=== PATIENT | female | born 1960 | race Caucasian/White ===

== ENCOUNTER 2020-09-06 22:50 | Emergency (ER) | payer MEDICAID ==
--- NOTE | 2020-09-06 23:25 | ERPHSYRPT ---
- History of Present Illness Source: patient Exam Limitations: no limitations Patient Subjective Stated Complaint: pt states that she was sitting on the side of the bed and got up and fell. pt states that she felt her ankle give Triage Nursing Assessment: pt came into the er via wheelchair; pt is axo x3; c/o fall with injury to LLE; pt states that she uses walker to ambulate with at home; pt states 8/10 pain to LLE; weak pedal pulse to LLE; swelling present to left ankle; pt states left knee, left calf, and left ankle pain; pt denies left hip pain; to deformities present; vitals wnl Physician History: 60 yo wf w fall off bed 12 hours ago at home. Pt complains of L Knee/L ankle pain. Pain moderate and worse w weight bearing. Occurred: this morning Reason for Fall: lost balance Injuries/Pain Location: lower extremity Loss of Consciousness: no loss of consciousness Quality: aching Severity of Pain-Max: moderate Severity of Pain-Current: moderate Modifying Factors: Improves With: movement Associated Symptoms (Fall): denies symptoms Allergies/Adverse Reactions: No Known Drug Allergies Allergy (Verified 09/06/20 23:12) Home Medications: Atenolol 12.5 mg PO BID 03/10/13 [History] Omeprazole [Prilosec] 20 mg PO DAILY 03/10/13 [History] Hx Tetanus, Diphtheria Vaccination/Date Given: Yes (2012) Hx Influenza Vaccination/Date Given: Yes Hx Pneumococcal Vaccination/Date Given: Yes Travel Risk - International Travel Have you traveled outside of the country in past 3 weeks: No - Coronavirus Screening Are you exhibiting any of the following symptoms?: No Close contact with a COVID-19 positive Pt in past 14-21 Days: No - Review of Systems Constitutional: No Symptoms Eyes: No Symptoms Ears, Nose, & Throat: No Symptoms Respiratory: No Symptoms Cardiac: No Symptoms Abdominal/Gastrointestinal: No Symptoms Genitourinary Symptoms: No Symptoms Skin: No Symptoms Neurological: No Symptoms Psychological: No Symptoms Hematologic/Lymphatic: No Symptoms Immunological/Allergic: No Symptoms - Past Medical History Pertinent Past Medical History: Yes Neurological History: Peripheral Neuropathy, Stroke Cardiac History: Hypertension Respiratory History: COPD, Lung Cancer, Pneumonia Endocrine Medical History: No Pertinent History Musculoskeletal History: Osteoarthritis Psycho-Social History: Anxiety, Bipolar, Depression, Other Other Medical History: Stroke 2016, neuropathy in B feet that has gotten worse due to chemotherapy. Pt is on 3L O2 24 hours/day. - Past Surgical History Past Surgical History: Yes Musculoskeletal: Orthopedic Surgery Female Surgical History: Section Other Surgical History: upper left lobe of lung removed - Social History Smoking Status: Current every day smoker How long have you smoked: 40 Exposure to second hand smoke: Yes Drug Use: none Patient Lives Alone: No - Female History Hx Now: No - Nursing Vital Signs Nursing Vital Signs: Initial Vital Signs Temperature 97.9 F 09/06/20 22:57 Pulse Rate 87 09/06/20 22:57 Respiratory Rate 24 09/06/20 22:57 Blood Pressure 137/72 09/06/20 22:57 O2 Sat by Pulse Oximetry 92 L 09/06/20 22:57 Pain Scale Pain Intensity 6 - Ana Coma Score Best Eye Response (Ana): (4) open spontaneously Best Verbal Response (Ana): (5) oriented Best Motor Response ([place]): (6) obeys commands [place] Total: 15 - Physical Exam General Appearance: no apparent distress Head Injury: no evidence of injury Eye Exam: PERRL/EOMI, eyes nml inspection ENT Exam: airway nml Neck Exam: supple, trachea midline, pain on movement of neck (C-spine nttp) Respiratory/Chest Exam: normal breath sounds, No respiratory distress, No rales, No rhonchi, No wheezing Cardiovascular Exam: normal heart sounds, regular rate/rhythm, normal peripheral pulses, No murmur Gastrointestinal Exam: soft, normal bowel sounds, No tenderness Back Exam: normal inspection, No CVA tenderness, No vertebral tenderness Extremity Exam: pelvis stable, bony point tenderness (TTP inferior to lateral malleolus/Mild edema/pain w inversion/L knee ttp laterally/minimal edema/Good pedal pulse, distal sensation, and capillary return), No motor deficit Neurologic Exam: alert, oriented x 3, cooperative, wrapper and preserver II-XII nml as tested, normal mood/affect, sensation nml, No motor deficits, No sensory deficit Skin Exam: normal color SpO2 Interpretation: normal SpO2: 92 O2 Delivery: Nasal Cannula - Course Nursing assessment & vital signs reviewed: Yes - Radiology Exams Knee X-ray Interpretation: Interpreted by me (L superior fibula fx) Ankle X-ray Interpretation: Interpreted by me (Neg) Ordered Tests: Active Orders 24 hr Category Date Time Status Crutches STAT Care 09/07/20 00:14 Active Splint STAT Care 09/06/20 23:50 Active ANKLE (3 VIEWS) Stat Exams 09/06/20 23:51 Taken KNEE (3 VIEWS) Stat Exams 09/06/20 23:51 Taken Medication Summary Discontinued Medications Generic Name Dose Route Start Last Admin Trade Name Marika PRN Reason Stop Dose Admin Ketorolac Tromethamine 30 mg 09/06/20 23:50 09/06/20 23:54 Toradol 30 Mg Injection IM 09/06/20 23:51 30 mg STAT ONE Administration Ketorolac Tromethamine Confirm 09/06/20 23:50 Toradol 30 Mg Injection Administered 09/06/20 23:51 Dose 30 mg .ROUTE .STK-MED ONE - Progress Progress Note: 09/06/20 23:52 30mg IM Toradol L knee immobilizer per nursing/NVI Crutchesw per nursing/NVI 09/07/20 00:21 Counseled pt/family regarding: need for follow-up, rad results - Departure Departure Disposition: Home Clinical Impression: Fracture, fibula, proximal Condition: Stable Critical Care Time: No Referrals: DELANEY OLIVEIRA [Primary Care Provider] - ORTHO - NAVNEET DAVILA NP [NON-STAFF PHY W/O PRIVILEGES] - Instructions: Fibula Fracture Additional Instructions: No weight bearing Use crutches or walker Pain meds as needed Follow up in the ortho clinic M-Fr 8-10:00AM Prescriptions: Hydrocodone/APAP 5-325 Tab^^^ [[place] 5-325 Tablet^^^] 1 each PO Q4HPRN PRN #10 tablet MDD 6 PRN Reason: Pain Hydrocodone/APAP 10/325 mg [[place] 10/325 MG Tablet] 1 tab PO Q6H PRN PRN #10 tablet MDD 4 tabs per day PRN Reason: Pain
[2020-09-06] MEDS ORDERED: TORAdol 30 mg Injection ONE (23:50)
[2020-09-06] MEDS ORDERED: TORAdol 30 mg Injection IM ONE (23:50)
[2020-09-07 00:15] VITALS: BP 115/48; PULSE 82
[2020-09-07 00:20] VITALS: O2SAT 92
--- NOTE | 2020-09-07 09:04 | XRAY ---
Indication: Pain following fall. Comparison: January 18, 2007. 3 view left knee demonstrates new nondisplaced spiral fracture proximal shaft fibula. New mild medial/lateral compartment spurring and minimal distal femoral artery calcifications. No other bony, articular, or soft tissue abnormalities.
--- NOTE | 2020-09-07 09:06 | XRAY ---
Indication: Pain following fall. Comparison: None 3 view left ankle demonstrates soft tissue swelling and tiny heel spurs. No other bony, articular, or soft tissue abnormalities.
== END 2020-09-07 00:24 | disposition home or self-care (01) ==
LOC: ED 22:50
DX: S82.832A Other fracture of upper and lower end of left fibula, initial encounter for closed fracture (principal); W06.XXXA Fall from bed, initial encounter; M25.572 Pain in left ankle and joints of left foot; M25.562 Pain in left knee; I10 Essential (primary) hypertension; J44.9 Chronic obstructive pulmonary disease, unspecified; Z79.899 Other long term (current) drug therapy
CPT/HCPCS: 73562; 73610; 96372; 99284; J1885; L1830

== ENCOUNTER 2021-06-28 00:49 | Inpatient (IN) | payer MEDICAID ==
[2021-06-28] MEDS ORDERED: Lasix 40 MG/4 ML IV ONE ×2 (01:00→09:48)
--- NOTE | 2021-06-28 01:00 | ERPHSYRPT ---
- History of Present Illness Time Seen by Provider: 06/28/21 01:00 Source: patient Exam Limitations: no limitations Physician History: Patient is a 61-year-old female with a history of CHF COPD current smoker presents to our ED via EMS for evaluation and treatment of shortness of breath respiratory distress. Patient wears 3 L oxygen nasal cannula 24 hours/day. Patient was observed to be 81% on 3 L upon arrival of EMS. Patient symptoms started approximately 3 days ago. Patient states she self treating with albuterol nebulizer without any significant improvement. EMS reports patient was wheezing with coarse breath sounds. In route patient received a DuoNeb and albuterol neb and 125 mg of Solu-Medrol. Patient received sublingual nitro and a nitro paste. Patient states she feels much better. No associated fever. No chest pain. No nausea or vomiting. No diaphoresis. Symptoms are moderate in intensity. No specific worsening improving factors. Patient voices no other complaints or concerns at this time. Timing/Duration: day(s) (3 days) Severity: moderate Modifying Factors: Improves With: nothing Associated Symptoms: denies symptoms, cough, No vomiting, No chills, No chest pain, No fever, No headaches, No rash, No syncope, No seizure Allergies/Adverse Reactions: paclitaxel [From Taxol] Allergy (Severe, Verified 06/28/21 01:14) Anaphylactic Reaction Home Medications: Omeprazole [Prilosec] 20 mg PO DAILY 03/10/13 [History] ALPRAZolam [Alprazolam] 0.5 mg PO HS 05/11/21 [History] Albuterol 17 gm IH Q4HPRN PRN 05/11/21 [History] Allopurinol 100 mg [Zyloprim 100 mg] 100 mg PO DAILY 05/11/21 [History] Budesonide/Glycopyr/Formoterol [Breztri Aerosphere Inhaler] 10.7 gm IH BID [History] Clopidogrel Bisulfate 75 mg [PLAVIX 75 MG Tablet] 75 mg PO DAILY 05/11/21 [History] Doxepin HCl 25 mg PO HSPRN PRN 05/11/21 [History] Ferrous Sulfate 325 mg PO DAILY 05/11/21 [History] Fluticasone/Salmeterol 115 [Advair Hfa 115 Common canister*] 2 puff IH BIDRT 05/11/21 [History] Furosemide [Lasix] 80 mg PO DAILY 05/11/21 [History] Gabapentin 300 mg [Neurontin 300 mg] 300 mg PO HS 05/11/21 [History] Ipratropium/Albuterol Sulfate [Iprat-Albut 0.5-3(2.5) mg/3 ml] 3 ml IH DAILY 05/11/21 [History] Nicotine 14 mg [Nicoderm Cq 14 mg] 14 mg TOP DAILY 05/11/21 [History] Potassium Chloride 10 Meq Tab* [Klor Con 10 MEQ] 10 meq PO DAILY 05/11/21 [History] Pramipexole Di-HCl [Pramipexole ER] 1.5 mg PO DAILY 05/11/21 [History] Theophylline Anhydrous [Shimon-24] 200 mg PO DAILY 05/11/21 [History] atenoloL [Atenolol] 100 mg PO DAILY 05/11/21 [History] Hx Tetanus, Diphtheria Vaccination/Date Given: Yes (2012) Hx Influenza Vaccination/Date Given: Yes Hx Pneumococcal Vaccination/Date Given: Yes - Review of Systems Constitutional: No Symptoms, No Fever, No Chills Eyes: No Symptoms Ears, Nose, & Throat: No Symptoms Respiratory: No Symptoms, No Cough, No Dyspnea Cardiac: No Symptoms, No Chest Pain, No Edema, No Syncope Abdominal/Gastrointestinal: No Symptoms, No Abdominal Pain, No Nausea, No Vomiting, No Diarrhea Genitourinary Symptoms: No Symptoms, No Dysuria Musculoskeletal: No Symptoms, No Back Pain, No Neck Pain Skin: No Symptoms, No Rash Neurological: No Symptoms, No Dizziness, No Focal Weakness, No Sensory Changes Psychological: No Symptoms Endocrine: No Symptoms Hematologic/Lymphatic: No Symptoms Immunological/Allergic: No Symptoms All Other Systems: Reviewed and Negative - Past Medical History Pertinent Past Medical History: Yes Neurological History: Peripheral Neuropathy, Stroke Cardiac History: Hypertension Respiratory History: COPD, Lung Cancer, Pneumonia Endocrine Medical History: No Pertinent History Musculoskeletal History: Osteoarthritis GI Medical History: No Pertinent History History: No Pertinent History Psycho-Social History: Anxiety, Bipolar, Depression, Other Female Reproductive Disorders: No Pertinent History Other Medical History: Stroke 2016, neuropathy in B feet that has gotten worse due to chemotherapy. Pt is on 3L O2 24 hours/day. - Past Surgical History Past Surgical History: Yes Neuro Surgical History: No Pertinent History Cardiac: No Pertinent History Respiratory: Lobectomy Gastrointestinal: No Pertinent History Genitourinary: No Pertinent History Musculoskeletal: Orthopedic Surgery Female Surgical History: Section Other Surgical History: upper left lobe of lung removed - Social History Smoking Status: Current every day smoker How long have you smoked: 40 Exposure to second hand smoke: Yes Drug Use: none Patient Lives Alone: No - Nursing Vital Signs Nursing Vital Signs: Initial Vital Signs Temperature 97.3 F 06/28/21 00:50 Pulse Rate 104 H 06/28/21 00:50 Respiratory Rate 24 06/28/21 00:50 Blood Pressure 109/60 06/28/21 00:50 O2 Sat by Pulse Oximetry 95 06/28/21 00:50 Pain Scale Pain Intensity 0 - Physical Exam General Appearance: no apparent distress, alert Eye Exam: PERRL/EOMI, eyes nml inspection Ears, Nose, Throat Exam: normal ENT inspection, TMs normal, pharynx normal, moist mucous membranes Neck Exam: normal inspection, non-tender, supple, full range of motion Respiratory Exam: normal breath sounds, respiratory distress (Mild respiratory distress.), airway intact, accessory muscle use, crackles/rales, wheezing Cardiovascular Exam: regular rate/rhythm, normal heart sounds, normal peripheral pulses Gastrointestinal/Abdomen Exam: soft, normal bowel sounds, No tenderness, No mass Back Exam: normal inspection, normal range of motion, No CVA tenderness, No vertebral tenderness Extremity Exam: normal inspection, normal range of motion, pelvis stable, pedal edema, swelling, No calf tenderness Neurologic Exam: alert, oriented x 3, cooperative, normal mood/affect, nml cerebellar function, nml station & gait, sensation nml, No motor deficits Skin Exam: normal color, warm, dry, No rash Lymphatic Exam: No adenopathy SpO2 Interpretation: normal SpO2: 95 O2 Delivery: BiPap/CPAP (CPAP was applied to patient in route.) - Course Nursing assessment & vital signs reviewed: Yes EKG Interpreted by Me: RATE, Sinus Tach, NORMAL AXIS, NORMAL INTERVALS, NORMAL QRS - Radiology Exams Chest X-ray Interpretation: Interpreted by me (Right lower lobe infiltrate. Bladder atelectasis. Bony thorax intact.) Ordered Tests: Active Orders 24 hr Category Date Time Status [employer] Manager STAT Care 06/28/21 00:55 Active EKG-ER Only STAT Care 06/28/21 00:55 Active IV Insertion STAT Care 06/28/21 00:55 Active Pulse Oximetry (ED) STAT Care 06/28/21 00:55 Active CHEST 1 VIEW (PORTABLE) Stat Exams 06/28/21 00:55 Taken BLOOD CULTURE Stat Lab 06/28/21 01:24 Ordered CBC W DIFF Stat Lab 06/28/21 01:24 Completed CMP Stat Lab 06/28/21 01:24 Completed Manual Differential NC Stat Lab 06/28/21 01:24 Completed NT PRO BNP Stat Lab 06/28/21 01:00 Completed TROPONIN Q3H Lab 06/28/21 01:24 Completed TROPONIN Q3H Lab 06/28/21 04:00 Ordered TROPONIN Q3H Lab 06/28/21 07:00 Ordered TROPONIN Q3H Lab 06/28/21 10:00 Ordered TROPONIN Q3H Lab 06/28/21 13:00 Ordered UA W/RFX UR CULTURE Stat Lab 06/28/21 03:08 Completed VBG [VENOUS BLOOD GAS] Stat Lab 06/28/21 01:20 Completed BiPap/CPAP ROUTINE RT 06/28/21 01:55 Active Medication Summary Generic Name Dose Route Start Last Admin Trade Name Freq PRN Reason Stop Dose Admin Azithromycin / Sodium Chloride 250 mls @ 125 mls/hr 06/28/21 03:15 IV 06/28/21 05:14 STAT ONE Ceftriaxone Sodium/Dextrose 2 g in 50 mls @ 100 mls/hr 06/28/21 10:00 06/28/21 03:32 Rocephin 2 Gm-D5w 50ml Bag IV 07/01/21 09:59 100 ml/hr Q24H10 CASSIE 100 mls/hr Administration Discontinued Medications Generic Name Dose Route Start Last Admin Trade Name Freq PRN Reason Stop Dose Admin Aspirin 324 mg 06/28/21 03:04 06/28/21 03:11 Aspirin 81 Mg Tab.Chew PO 06/28/21 03:05 324 mg STAT ONE Administration Furosemide 40 mg 06/28/21 01:00 06/28/21 02:25 Furosemide 40 Mg/4 Ml Vial IV 06/28/21 01:01 40 mg STAT ONE Administration Furosemide Confirm 06/28/21 02:25 Furosemide 40 Mg/4 Ml Vial Administered 06/28/21 02:26 Dose 40 mg .ROUTE .STK-MED ONE Nitroglycerin 1 gm 06/28/21 03:04 06/28/21 03:11 Nitroglycerin 1 Gm Packet TOP 06/28/21 03:05 1 gm STAT ONE Administration Nitroglycerin Confirm 06/28/21 03:10 Nitroglycerin 1 Gm Packet Administered 06/28/21 03:11 Dose 1 gm .ROUTE .STK-MED ONE Lab/Rad Data: Laboratory Result Diagrams 06/28/21 01:24 06/28/21 01:24 Laboratory Results 06/28/21 06/28/21 06/28/21 Range/Units 03:08 01:27 01:24 WBC (4.0-10.5) K/mm3 RBC (4.1-5.4) M/mm3 Hgb (12.0-16.0) gm/dl Hct (35-47) % MCV (78-100) fl MCH (26-32) pg MCHC (32-36) g/dl RDW (11.5-14.0) % Plt Count (150-450) K/mm3 MPV (7.5-11.0) fl Segmented Neutrophils (36.0-66.0) % Band Neutrophils (0.0-2.0) % Lymphocytes (Manual) (24-44) % Monocytes (Manual) (0.0-12.0) % Hypochromia Platelet Estimate (NORMAL) RBC Morphology Polychromasia Basophilic Stippling pO2/FiO2 Ratio % VBG pH (7.32-7.42) VBG pCO2 at Pat Temp (42-55) mm/Hg VBG pO2 at Pat Temp (25-40) mm/Hg VBG HCO3 (22-28) meq/L VBG O2 Sat ([place]) (95-100) VBG Base Excess (-2.0-2.0) VBG Hemoglobin VBG Carboxyhemoglobin (0.0-6.9) % T HGB POC Potassium (3.5-5.1) Sodium (137-145) mmol/L Potassium (3.5-5.1) mmol/L Chloride (98-107) mmol/L Carbon Dioxide (22-30) mmol/L Anion Gap (5-15) MEQ/L BUN (7-17) mg/dL Creatinine (0.52-1.04) mg/dL Estimated GFR ML/MIN Glucose (74-106) mg/dL Calcium (8.4-10.2) mg/dL Total Bilirubin (0.2-1.3) mg/dL AST (14-36) U/L ALT (0-35) U/L Alkaline Phosphatase (38-126) U/L Troponin I 0.045 H* (0.000-0.034) ng/mL NT-Pro-B Natriuret Pep (0-900) pg/mL Serum Total Protein (6.3-8.2) g/dL Albumin (3.5-5.0) g/dL Urine Color YELLOW (YELLOW) Urine Appearance CLEAR (CLEAR) Urine pH 6.0 (5-6) Ur Specific [place] 1.010 (1.005-1.025) Urine Protein NEGATIVE (Negative) Urine Ketones NEGATIVE (NEGATIVE) Urine Blood NEGATIVE (0-5) Jere/ul Urine Nitrite NEGATIVE (NEGATIVE) Urine Bilirubin NEGATIVE (NEGATIVE) Urine Urobilinogen NEGATIVE (0-1) mg/dL Ur Leukocyte Esterase NEGATIVE (NEGATIVE) Urine WBC (Auto) NONE (0-5) /HPF Urine RBC (Auto) NONE SEEN (0-2) /HPF U Epithel Cells (Auto) NONE (FEW) /HPF Urine Bacteria (Auto) NONE SEEN (NEGATIVE) /HPF Urine Culture Reflexed NO (NO) Urine Glucose NEGATIVE (NEGATIVE) mg/dL Influenza Type A Ag NEGATIVE (NEGATIVE) Influenza Type B Ag NEGATIVE (NEGATIVE) RSV (PCR) NEGATIVE (Negative) SARS-CoV-2 (PCR) NEGATIVE (NEGATIVE) 06/28/21 06/28/21 06/28/21 Range/Units 01:24 01:24 01:20 WBC 12.5 H (4.0-10.5) K/mm3 RBC 4.42 (4.1-5.4) M/mm3 Hgb 11.6 L (12.0-16.0) gm/dl Hct 40.8 (35-47) % MCV 92.3 (78-100) fl MCH 26.2 (26-32) pg MCHC 28.4 L (32-36) g/dl RDW 18.7 H (11.5-14.0) % Plt Count 184 (150-450) K/mm3 MPV 8.2 (7.5-11.0) fl Segmented Neutrophils 61 (36.0-66.0) % Band Neutrophils 10 H (0.0-2.0) % Lymphocytes (Manual) 28 (24-44) % Monocytes (Manual) 1 (0.0-12.0) % Hypochromia 1+ Platelet Estimate NORMAL (NORMAL) RBC Morphology ABNORMAL Polychromasia 1+ Basophilic Stippling 1+ pO2/FiO2 Ratio 60.0 % VBG pH 7.38 (7.32-7.42) VBG pCO2 at Pat Temp 67 H* (42-55) mm/Hg VBG pO2 at Pat Temp 34 (25-40) mm/Hg VBG HCO3 39.6 H* (22-28) meq/L VBG O2 Sat ([place]) 60.7 L (95-100) VBG Base Excess 11.5 H (-2.0-2.0) VBG Hemoglobin 12.4 VBG Carboxyhemoglobin 4.4 (0.0-6.9) % T HGB POC Potassium 4.1 (3.5-5.1) Sodium 140 (137-145) mmol/L Potassium 4.0 (3.5-5.1) mmol/L Chloride 99 (98-107) mmol/L Carbon Dioxide 36 H (22-30) mmol/L Anion Gap 9.3 (5-15) MEQ/L BUN 18 H (7-17) mg/dL Creatinine 0.68 (0.52-1.04) mg/dL Estimated GFR > 60.0 ML/MIN Glucose 161 H (74-106) mg/dL Calcium 8.8 (8.4-10.2) mg/dL Total Bilirubin 0.70 (0.2-1.3) mg/dL AST 34 (14-36) U/L ALT 35 (0-35) U/L Alkaline Phosphatase 105 (38-126) U/L Troponin I (0.000-0.034) ng/mL NT-Pro-B Natriuret Pep (0-900) pg/mL Serum Total Protein 6.4 (6.3-8.2) g/dL Albumin 3.8 (3.5-5.0) g/dL Urine Color (YELLOW) Urine Appearance (CLEAR) Urine pH (5-6) Ur Specific [place] (1.005-1.025) Urine Protein (Negative) Urine Ketones (NEGATIVE) Urine Blood (0-5) Jere/ul Urine Nitrite (NEGATIVE) Urine Bilirubin (NEGATIVE) Urine Urobilinogen (0-1) mg/dL Ur Leukocyte Esterase (NEGATIVE) Urine WBC (Auto) (0-5) /HPF Urine RBC (Auto) (0-2) /HPF U Epithel Cells (Auto) (FEW) /HPF Urine Bacteria (Auto) (NEGATIVE) /HPF Urine Culture Reflexed (NO) Urine Glucose (NEGATIVE) mg/dL Influenza Type A Ag (NEGATIVE) Influenza Type B Ag (NEGATIVE) RSV (PCR) (Negative) SARS-CoV-2 (PCR) (NEGATIVE) 06/28/21 Range/Units 01:00 WBC (4.0-10.5) K/mm3 RBC (4.1-5.4) M/mm3 Hgb (12.0-16.0) gm/dl Hct (35-47) % MCV (78-100) fl MCH (26-32) pg MCHC (32-36) g/dl RDW (11.5-14.0) % Plt Count (150-450) K/mm3 MPV (7.5-11.0) fl Segmented Neutrophils (36.0-66.0) % Band Neutrophils (0.0-2.0) % Lymphocytes (Manual) (24-44) % Monocytes (Manual) (0.0-12.0) % Hypochromia Platelet Estimate (NORMAL) RBC Morphology Polychromasia Basophilic Stippling pO2/FiO2 Ratio % VBG pH (7.32-7.42) VBG pCO2 at Pat Temp (42-55) mm/Hg VBG pO2 at Pat Temp (25-40) mm/Hg VBG HCO3 (22-28) meq/L VBG O2 Sat (Claude) (95-100) VBG Base Excess (-2.0-2.0) VBG Hemoglobin VBG Carboxyhemoglobin (0.0-6.9) % T HGB POC Potassium (3.5-5.1) Sodium (137-145) mmol/L Potassium (3.5-5.1) mmol/L Chloride (98-107) mmol/L Carbon Dioxide (22-30) mmol/L Anion Gap (5-15) MEQ/L BUN (7-17) mg/dL Creatinine (0.52-1.04) mg/dL Estimated GFR ML/MIN Glucose (74-106) mg/dL Calcium (8.4-10.2) mg/dL Total Bilirubin (0.2-1.3) mg/dL AST (14-36) U/L ALT (0-35) U/L Alkaline Phosphatase (38-126) U/L Troponin I (0.000-0.034) ng/mL NT-Pro-B Natriuret Pep 268 (0-900) pg/mL Serum Total Protein (6.3-8.2) g/dL Albumin (3.5-5.0) g/dL Urine Color (YELLOW) Urine Appearance (CLEAR) Urine pH (5-6) Ur Specific [place] (1.005-1.025) Urine Protein (Negative) Urine Ketones (NEGATIVE) Urine Blood (0-5) Jere/ul Urine Nitrite (NEGATIVE) Urine Bilirubin (NEGATIVE) Urine Urobilinogen (0-1) mg/dL Ur Leukocyte Esterase (NEGATIVE) Urine WBC (Auto) (0-5) /HPF Urine RBC (Auto) (0-2) /HPF U Epithel Cells (Auto) (FEW) /HPF Urine Bacteria (Auto) (NEGATIVE) /HPF Urine Culture Reflexed (NO) Urine Glucose (NEGATIVE) mg/dL Influenza Type A Ag (NEGATIVE) Influenza Type B Ag (NEGATIVE) RSV (PCR) (Negative) SARS-CoV-2 (PCR) (NEGATIVE) - Progress Progress: improved Progress Note: Case discussed with Dr. Mata. We will admit patient for antibiotics nebulizer treatment steroids and will trend troponin. We will test for Covid prior to admission. 06/28/21 03:55 Patient is Covid negative. 06/28/21 03:56 Plan of care discussed with patient. She agrees to admission at [facility] for further evaluation and treatment. 06/28/21 04:[address] Mildred Will see patient in: hospital (observation) Counseled pt/family regarding: lab results, diagnosis, rad results - Departure Departure Disposition: Observation Clinical Impression: COPD (chronic obstructive pulmonary disease), Hypoxia, Elevated troponin, Pneumonia Condition: Stable Critical Care Time: No Referrals: JUNAID ALCALA [employer] SERVICER AND INSTALLER [Primary Care Provider] - Follow up/PCP as directed Instructions: Chronic Obstructive Pulmonary Disease
[2021-06-28 01:25] LABS: VBG BASE EXCESS 11.5 (-2.0-2.0); VBG CARBOXYHEMOGLOBIN 4.4 % T HGB (0.0-6.9); VBG HCO3- 39.6 meq/L (22-28); VBG HEMOGLOBIN 12.4; VBG O2 SATURATION 60.7 (95-100); VBG POTASSIUM 4.1 (3.5-5.1); VBG pH 7.38 (7.32-7.42)
[2021-06-28 01:28] LABS: Hematocrit 40.8 % (35-47); Hemoglobin 11.6 gm/dl (12.0-16.0); Mean Cell Volume 92.3 fl (78-100); Mean Corpuscular Hemoglobin 26.2 pg (26-32); Mean Corpuscular Hgb Concent. 28.4 g/dl (32-36); Mean Platelet Volume 8.2 fl (7.5-11.0); Platelet Count 184 K/mm3 (150-450); Red Blood Count 4.42 M/mm3 (4.1-5.4); Red Cell Distribution Width 18.7 % (11.5-14.0); White Blood Count 12.5 K/mm3 (4.0-10.5)
[2021-06-28 01:44] LABS: ALBUMIN 3.8 g/dL (3.5-5.0); ALKALINE PHOSPHATASE 105 U/L (38-126); ANION GAP 9.3 MEQ/L (5-15); BLOOD UREA NITROGEN 18 mg/dL (7-17); CHLORIDE 99 mmol/L (98-107); Calcium 8.8 mg/dL (8.4-10.2); Carbon Dioxide 36 mmol/L (22-30); Creatinine 1 0.68 mg/dL (0.52-1.04); EST GLOMERULAR FILTRATION RATE > 60.0 ML/MIN; Glucose 161 mg/dL (74-106); SGOT/AST 34 U/L (14-36); SGPT/ALT 35 U/L (0-35); SODIUM 140 mmol/L (137-145); Total Protein 6.4 g/dL (6.3-8.2)
[2021-06-28 02:05] LABS: INFLUENZA A NEGATIVE (NEGATIVE); INFLUENZA B NEGATIVE (NEGATIVE); RESPIRATORY SYNCTIAL VIRUS NEGATIVE (Negative); SARS-CoV-2 Xpert Express NEGATIVE (NEGATIVE)
[2021-06-28] MEDS ORDERED: Lasix 40 MG/4 ML ONE (02:25)
[2021-06-28] MEDS ORDERED: NITRO-BID 2% UD PACKETS TOP ONE (03:04)
[2021-06-28] MEDS ORDERED: BABY ASPIRIN 81 MG CHEW PO ONE (03:04)
[2021-06-28] MEDS ORDERED: NITRO-BID 2% UD PACKETS ONE (03:10)
[2021-06-28] MEDS ORDERED: ZITHROMAX IV*** 0 MG in Sodium Chloride 0.9% 250 ML 250 ML IV ONE (03:15)
[2021-06-28 03:23] LABS: BAND 10 % (0.0-2.0); Basophilic Stippling 1+; Hypochromia 1+; Lymphocytes 28 % (24-44); Monocyte 1 % (0.0-12.0); Neutrophils 61 % (36.0-66.0); Platelet Estimate NORMAL (NORMAL); Polychromasia 1+; Total Cells Counted 100
[2021-06-28 03:31] LABS: Appearance CLEAR (CLEAR); Bilirubin NEGATIVE (NEGATIVE); Blood NEGATIVE Ery/ul (0-5); Glucose NEGATIVE (NEGATIVE); Ketones NEGATIVE (NEGATIVE); Leukocyte Esterase NEGATIVE (NEGATIVE); Nitrite NEGATIVE (NEGATIVE); Protein,Urine Dip NEGATIVE (Negative); Urobilinogen NEGATIVE mg/dL (0-1)
[2021-06-28 03:34] LABS: Bacteria NONE SEEN /HPF (NEGATIVE); RBC NONE SEEN /HPF (0-2)
[2021-06-28] MEDS ORDERED: MILK OF MAGNESIA 30 ML PO PRN (05:38)
[2021-06-28] MEDS ORDERED: TYLENOL 325 MG PO PRN (05:38)
[2021-06-28] MEDS ORDERED: Zofran 4 MG/2 ML VIAL IV PRN (05:38)
[2021-06-28] MEDS ORDERED: Senokot-S Tablet PO PRN (05:38)
[2021-06-28] MEDS ORDERED: MAALOX ES 30 ML UNIT DOSE PO PRN (05:38)
[2021-06-28] MEDS: solu-MEDROL 60 MG, Sterile H2O 10 ml 2 ML IV SCH ×8 (06:54→23:21)
[2021-06-28] MEDS ORDERED: PROVENTIL 2.5 MG/3 ML NEB IH SCH (07:00)
[2021-06-28] MEDS: Zithromax 500 MG/ 250 ML NaCl Premix 500 MG/250 ML IVPB IV SCH (09:08)
--- NOTE | 2021-06-28 09:12 | XRAY ---
Indication: Short of breath. Comparison: May 11, 2021. Portable apical lordotic grossly unchanged again demonstrating diffuse hazy interstitial opacities and minimal right infrahilar infiltrate/atelectasis. Heart not enlarged again with left Port-A-Cath. No new cardiopulmonary abnormalities.
[2021-06-28] MEDS ORDERED: Klor Con 10 MEQ PO ONE (09:49)
[2021-06-28] MEDS ORDERED: ROCEPHIN 2 Gm-D5w 50ML BAG** 2 G/50 ML IVPB IV SCH ×2 (10:00→22:00)
[2021-06-28] MEDS ORDERED: DOXEPIN HCL PO PRN (10:13)
[2021-06-28] MEDS ORDERED: NON-FORMULARY ITEM (Albuterol [Albuterol] 17 GM Aerosol) IH PRN (10:13)
[2021-06-28] MEDS ORDERED: VENTOLIN COMMON CANISTER IH PRN (10:33)
[2021-06-28] MEDS: TENORMIN 50 MG PO SCH (10:59)
[2021-06-28] MEDS: ECOTRIN 81 MG PO SCH (10:59)
[2021-06-28] MEDS: THEOPHYLLINE ER 24HR PO SCH (10:59)
[2021-06-28] MEDS: Protonix 40MG Tablet PO SCH (10:59)
[2021-06-28] MEDS: Mirapex 0.5 MG Tablet PO SCH ×2 (11:00→21:25)
[2021-06-28] MEDS: NICODERM CQ 14 MG TOP SCH (11:00)
[2021-06-28] MEDS: ZYLOPRIM 100 MG PO SCH (11:00)
[2021-06-28] MEDS: PLAVIX 75 MG Tablet PO SCH (11:00)
[2021-06-28] MEDS: NEURONTIN 300 MG PO SCH ×3 (11:00→21:25)
[2021-06-28] MEDS: FEOSOL 325 MG PO SCH (11:00)
[2021-06-28] MEDS ORDERED: Klor Con 10 MEQ PO SCH (11:00)
[2021-06-28] MEDS: Advair Hfa 115/21 Common canister IH SCH ×2 (11:15→19:12)
[2021-06-28] MEDS: DUONEB 0.5-3 MG/3 ml Neb IH SCH ×3 (11:31→19:00)
[2021-06-28 16:06] VITALS: BP 124/57; PULSE 82; O2SAT 97
[2021-06-28] MEDS: ROCEPHIN 1 Gm-D5w 50 ml Bag** 1 G/50 ML IVPB IV SCH (21:25)
[2021-06-28] MEDS: XANAX 1 MG PO SCH (21:26)
[2021-06-28] MEDS ORDERED: PRAMIPEXOLE DI HCL 1.5 MG PO SCH (22:00)
[2021-06-29] MEDS: solu-MEDROL 60 MG, Sterile H2O 10 ml 2 ML IV SCH ×4 (06:05→13:28)
[2021-06-29 06:36] LABS: Hematocrit 35.6 % (35-47); Mean Cell Volume 92.2 fl (78-100); Mean Corpuscular Hemoglobin 25.9 pg (26-32); Mean Corpuscular Hgb Concent. 28.1 g/dl (32-36); Mean Platelet Volume 9.2 fl (7.5-11.0); Platelet Count 199 K/mm3 (150-450); Red Blood Count 3.86 M/mm3 (4.1-5.4); Red Cell Distribution Width 17.2 % (11.5-14.0); White Blood Count 11.6 K/mm3 (4.0-10.5)
[2021-06-29 07:09] LABS: ALBUMIN 3.2 g/dL (3.5-5.0); ALKALINE PHOSPHATASE 83 U/L (38-126); ANION GAP 8.8 MEQ/L (5-15); BLOOD UREA NITROGEN 26 mg/dL (7-17); CHLORIDE 96 mmol/L (98-107); Calcium 8.6 mg/dL (8.4-10.2); Carbon Dioxide 38 mmol/L (22-30); Cholesterol 159 mg/dL (50-200); Creatinine 1 0.57 mg/dL (0.52-1.04); EST GLOMERULAR FILTRATION RATE > 60.0 ML/MIN; Glucose 176 mg/dL (74-106); HDL CHOLESTEROL 55 mg/dL (40-60); LDL, DIRECT 91 mg/dL (30-100); Potassium 4.1 mmol/L (3.5-5.1); Risk Ratio 2.9; SGOT/AST 22 U/L (14-36); SGPT/ALT 26 U/L (0-35); SODIUM 139 mmol/L (137-145); TRIGLYCERIDE 86 mg/dL (30-150); Total Protein 5.6 g/dL (6.3-8.2)
[2021-06-29 07:11] LABS: Slide Review YES
[2021-06-29] MEDS: DUONEB 0.5-3 MG/3 ml Neb IH SCH ×4 (07:27→19:43)
[2021-06-29] MEDS: Advair Hfa 115/21 Common canister IH SCH ×2 (07:31→19:44)
--- NOTE | 2021-06-29 08:28 | XRAY ---
Indication: Short of breath. Pneumonia. COPD. Comparison: 1 day earlier. Portable chest again demonstrates diffuse bilateral hazy interstitial opacities with minimal clearing of previous right infrahilar infiltrate/atelectasis. New right apical subsegmental atelectasis. Remaining heart, left Port-A-Cath, and bony thorax unremarkable.
[2021-06-29] MEDS: Zithromax 500 MG/ 250 ML NaCl Premix 500 MG/250 ML IVPB IV SCH (09:24)
[2021-06-29] MEDS: Lasix 40 MG PO SCH (09:25)
[2021-06-29] MEDS: TENORMIN 50 MG PO SCH (09:26)
[2021-06-29] MEDS: Protonix 40MG Tablet PO SCH (09:26)
[2021-06-29] MEDS: FEOSOL 325 MG PO SCH (09:27)
[2021-06-29] MEDS: PLAVIX 75 MG Tablet PO SCH (09:27)
[2021-06-29] MEDS: Klor Con 10 MEQ PO SCH (09:27)
[2021-06-29] MEDS: ZYLOPRIM 100 MG PO SCH (09:27)
[2021-06-29] MEDS: ECOTRIN 81 MG PO SCH (09:27)
[2021-06-29] MEDS: Mirapex 0.5 MG Tablet PO SCH ×2 (09:27→21:52)
[2021-06-29] MEDS: NEURONTIN 300 MG PO SCH ×3 (09:27→21:53)
[2021-06-29] MEDS: THEOPHYLLINE ER 24HR PO SCH (09:28)
[2021-06-29] MEDS: NICODERM CQ 14 MG TOP SCH (09:28)
[2021-06-29] MEDS ORDERED: OMEPRAZOLE 20 MG PO SCH (10:00)
[2021-06-29] MEDS ORDERED: ATENOLOL 100 MG PO SCH (10:00)
[2021-06-29] MEDS ORDERED: FUROSEMIDE 80 MG PO SCH (10:00)
[2021-06-29] MEDS ORDERED: THEOPHYLLINE ANHYDROUS 200 MG PO SCH (10:00)
[2021-06-29] MEDS: ENOXAPARIN SODIUM SQ SCH (13:29)
[2021-06-29] MEDS: solu-MEDROL 125 MG, Sterile H2O 10 ml 2 ML IV SCH ×4 (17:48→23:50)
[2021-06-29] MEDS: XANAX 1 MG PO SCH (21:52)
[2021-06-29] MEDS: ROCEPHIN 1 Gm-D5w 50 ml Bag** 1 G/50 ML IVPB IV SCH (21:53)
[2021-06-29] MEDS ORDERED: THEOPHYLLINE ER 24HR PO ONE (22:00)
[2021-06-30] MEDS: solu-MEDROL 125 MG, Sterile H2O 10 ml 2 ML IV SCH ×8 (05:50→23:40)
[2021-06-30 06:37] LABS: Hematocrit 36.8 % (35-47); Hemoglobin 10.2 gm/dl (12.0-16.0); Mean Cell Volume 93.6 fl (78-100); Mean Corpuscular Hgb Concent. 27.7 g/dl (32-36); Mean Platelet Volume 9.1 fl (7.5-11.0); Platelet Count 210 K/mm3 (150-450); Red Blood Count 3.93 M/mm3 (4.1-5.4); Red Cell Distribution Width 17.2 % (11.5-14.0)
[2021-06-30 06:46] LABS: ALBUMIN 3.4 g/dL (3.5-5.0); ALKALINE PHOSPHATASE 81 U/L (38-126); ANION GAP 10.5 MEQ/L (5-15); BLOOD UREA NITROGEN 34 mg/dL (7-17); CHLORIDE 94 mmol/L (98-107); Calcium 8.6 mg/dL (8.4-10.2); Carbon Dioxide 38 mmol/L (22-30); Creatinine 1 0.69 mg/dL (0.52-1.04); EST GLOMERULAR FILTRATION RATE > 60.0 ML/MIN; Glucose 250 mg/dL (74-106); Potassium 4.1 mmol/L (3.5-5.1); SGOT/AST 21 U/L (14-36); SGPT/ALT 26 U/L (0-35); SODIUM 139 mmol/L (137-145)
[2021-06-30] MEDS: DUONEB 0.5-3 MG/3 ml Neb IH SCH ×4 (07:54→18:52)
[2021-06-30] MEDS: Advair Hfa 115/21 Common canister IH SCH ×2 (07:56→19:34)
[2021-06-30 08:29] LABS: ANISOCYTOSIS 1+; BAND 2 % (0.0-2.0); Lymphocytes 25 % (24-44); Neutrophils 73 % (36.0-66.0); Platelet Estimate NORMAL (NORMAL); Total Cells Counted 100
[2021-06-30] MEDS: Klor Con 10 MEQ PO SCH (09:22)
[2021-06-30] MEDS: Zithromax 500 MG/ 250 ML NaCl Premix 500 MG/250 ML IVPB IV SCH (09:22)
[2021-06-30] MEDS: Lasix 40 MG PO SCH (09:22)
[2021-06-30] MEDS: ECOTRIN 81 MG PO SCH (09:22)
[2021-06-30] MEDS: TENORMIN 50 MG PO SCH (09:22)
[2021-06-30] MEDS: FEOSOL 325 MG PO SCH (09:23)
[2021-06-30] MEDS: THEOPHYLLINE ER 24HR PO SCH (09:23)
[2021-06-30] MEDS: ENOXAPARIN SODIUM SQ SCH (09:23)
[2021-06-30] MEDS: ZYLOPRIM 100 MG PO SCH (09:23)
[2021-06-30] MEDS: NEURONTIN 300 MG PO SCH ×3 (09:24→19:33)
[2021-06-30] MEDS: NICODERM CQ 14 MG TOP SCH (09:24)
[2021-06-30] MEDS: Protonix 40MG Tablet PO SCH (09:24)
[2021-06-30] MEDS: PLAVIX 75 MG Tablet PO SCH (09:27)
[2021-06-30] MEDS: Mucinex 600MG ER Tabs PO SCH ×2 (10:04→19:32)
[2021-06-30] MEDS: Mirapex 0.5 MG Tablet PO SCH ×2 (10:04→19:32)
[2021-06-30] MEDS: Mucomyst 200 MG/ML IH SCH ×2 (15:12→18:58)
[2021-06-30] MEDS: XANAX 1 MG PO SCH (19:33)
[2021-06-30] MEDS: ROCEPHIN 1 Gm-D5w 50 ml Bag** 1 G/50 ML IVPB IV SCH (19:33)
[2021-06-30] MEDS ORDERED: THEOPHYLLINE ER 24HR PO ONE (22:00)
[2021-07-01] MEDS: solu-MEDROL 125 MG, Sterile H2O 10 ml 2 ML IV SCH ×4 (06:06→16:30)
[2021-07-01 06:08] LABS: Hematocrit 35.9 % (35-47); Mean Cell Volume 92.8 fl (78-100); Mean Corpuscular Hemoglobin 25.8 pg (26-32); Mean Corpuscular Hgb Concent. 27.9 g/dl (32-36); Mean Platelet Volume 8.9 fl (7.5-11.0); Platelet Count 226 K/mm3 (150-450); Red Blood Count 3.87 M/mm3 (4.1-5.4); Red Cell Distribution Width 16.8 % (11.5-14.0); White Blood Count 13.6 K/mm3 (4.0-10.5)
[2021-07-01] MEDS: DUONEB 0.5-3 MG/3 ml Neb IH SCH ×4 (06:36→18:05)
[2021-07-01 06:37] LABS: ALBUMIN 3.4 g/dL (3.5-5.0); ALKALINE PHOSPHATASE 74 U/L (38-126); ANION GAP 12.1 MEQ/L (5-15); BLOOD UREA NITROGEN 35 mg/dL (7-17); CHLORIDE 93 mmol/L (98-107); Calcium 8.8 mg/dL (8.4-10.2); Carbon Dioxide 39 mmol/L (22-30); Creatinine 1 0.67 mg/dL (0.52-1.04); EST GLOMERULAR FILTRATION RATE > 60.0 ML/MIN; Glucose 155 mg/dL (74-106); Potassium 3.9 mmol/L (3.5-5.1); SGOT/AST 19 U/L (14-36); SGPT/ALT 25 U/L (0-35); SODIUM 140 mmol/L (137-145); Total Protein 5.8 g/dL (6.3-8.2)
[2021-07-01] MEDS: Mucomyst 200 MG/ML IH SCH (06:37)
[2021-07-01] MEDS: Advair Hfa 115/21 Common canister IH SCH ×2 (06:37→18:05)
[2021-07-01 06:44] LABS: Slide Review YES
[2021-07-01] MEDS: Lasix 40 MG PO SCH (10:09)
[2021-07-01] MEDS: ZYLOPRIM 100 MG PO SCH (10:09)
[2021-07-01] MEDS: Mirapex 0.5 MG Tablet PO SCH ×2 (10:09→20:51)
[2021-07-01] MEDS: Klor Con 10 MEQ PO SCH (10:10)
[2021-07-01] MEDS: NEURONTIN 300 MG PO SCH ×3 (10:10→20:50)
[2021-07-01] MEDS: TENORMIN 50 MG PO SCH (10:11)
[2021-07-01] MEDS: Protonix 40MG Tablet PO SCH (10:11)
[2021-07-01] MEDS: FEOSOL 325 MG PO SCH (10:11)
[2021-07-01] MEDS: Mucinex 600MG ER Tabs PO SCH ×2 (10:11→20:50)
[2021-07-01] MEDS: ENOXAPARIN SODIUM SQ SCH (10:11)
[2021-07-01] MEDS: PLAVIX 75 MG Tablet PO SCH (10:11)
[2021-07-01] MEDS: ECOTRIN 81 MG PO SCH (10:11)
[2021-07-01] MEDS: THEOPHYLLINE ER 24HR PO SCH (10:12)
[2021-07-01] MEDS: NICODERM CQ 14 MG TOP SCH (10:17)
[2021-07-01] MEDS: Zithromax 500 MG/ 250 ML NaCl Premix 500 MG/250 ML IVPB IV SCH (10:30)
[2021-07-01] MEDS: NORCO 5/325 MG PO PRN ×3 (11:27→20:59)
--- NOTE | 2021-07-01 13:52 | PCM.NOTE ---
Date and Time: 07/01/21 0587 Subjective Assessment: Patient was admitted 06/28/2021 with COPD exacerbation and has been on IV solumedrol 125mg q6H ,Rocephin and Azithromax IV. She has Hx lung cancer with positive lymph node approx 4 to 5 yrs ago Tx with lobectomy and Chemo. Home O2 is 3L/NC but was still requiring Bipap this morning. States breathing has g radually improved since admission. Objective Exam General Appearance: no apparent distress (on 5LPMM oximizer), lethargy Neurologic Exam: alert, oriented x 3 (does not want to get up in chair"too tired") Skin Exam: warm, dry, pale Respiratory Exam: diminished breath sounds, rhonchi, wheezing Cardiovascular Exam: regular rate/rhythm Extremity Exam: normal inspection (pitting edema) OBJECTIVE DATA Vital Signs: Vital Signs - 24 hr Temp Pulse Resp BP Pulse Ox 07/01/21 10:49 85 20 96 07/01/21 10:11 84 07/01/21 08:00 97.7 F 84 12 139/62 93 L 07/01/21 06:37 79 18 97 07/01/21 03:28 96.9 F 71 24 124/60 94 L 06/30/21 23:29 96.9 F 78 24 135/60 95 06/30/21 19:45 97.3 F 83 24 132/61 95 06/30/21 18:52 75 24 96 06/30/21 16:00 97.8 F 80 19 129/59 92 L 06/30/21 15:14 88 22 95 Pain Assessment - Last Documented Pain Intensity 9 Pain Scale Used 0-10 Pain Scale Intake and Output: Intake & Output 06/29/21 06/30/21 07/01/21 07/02/21 12:59 11:59 11:59 11:59 Intake Total 1320 Output Total 2800 Balance -1480 Weight 139.5 kg Lab Results: Lab Results-Last 24 Hours 07/01/21 07/01/21 07/01/21 Range/Units 04:40 04:40 04:40 WBC 13.6 H (4.0-10.5) K/mm3 RBC 3.87 L (4.1-5.4) M/mm3 Hgb 10.0 L (12.0-16.0) gm/dl Hct 35.9 (35-47) % MCV 92.8 (78-100) fl MCH 25.8 L (26-32) pg MCHC 27.9 L (32-36) g/dl RDW 16.8 H (11.5-14.0) % Plt Count 226 (150-450) K/mm3 MPV 8.9 (7.5-11.0) fl Sodium 140 (137-145) mmol/L Potassium 3.9 (3.5-5.1) mmol/L Chloride 93 L (98-107) mmol/L Carbon Dioxide 39 H (22-30) mmol/L Anion Gap 12.1 (5-15) MEQ/L BUN 35 H (7-17) mg/dL Creatinine 0.67 (0.52-1.04) mg/dL Estimated GFR > 60.0 ML/MIN Glucose 155 H (74-106) mg/dL Calcium 8.8 (8.4-10.2) mg/dL Total Bilirubin 0.40 (0.2-1.3) mg/dL AST 19 (14-36) U/L ALT 25 (0-35) U/L Alkaline Phosphatase 74 (38-126) U/L Serum Total Protein 5.8 L (6.3-8.2) g/dL Albumin 3.4 L (3.5-5.0) g/dL Theophylline 7.0 L (10-20) ug/mL Slides for Path Review YES Multi-Disciplinary Progress Notes: Multi-Disciplinary Progress Notes 07/01/21 12:32 Case Management Note by Radha Phelan S/W PATIENT- SHE CONTINUES TO PLAN TO DC HOME WITH HER SIG OTHER AND [facility]. SHE IS INTRESTED IN GETTING CPAP MACHINE BUT HAS NOT BEEN WELL ENOUGH TO COMPLETE THE SLEEP STUDY. CASE MANAGEMENT UNSURE IF TRELOGY MACHINE WOULD BE SOMETHING PATIENT WOULD QUALIFY FOR. RT NOTIFIED, A CHARLIE TO ROUND THIS AFTERNOON. WILL LEAVE NOTE ON CHART FOR CHARLIE ASKING ABOUT THIS. Initialized on 07/01/21 12:32 - END OF NOTE 07/01/21 10:52 Respiratory Note by Mona Nails O2 DECREASED TO 5LPM OXYMIZER AFTER NEB TX. Initialized on 07/01/21 10:52 - END OF NOTE Assessment/Plan (1) COPD (chronic obstructive pulmonary disease) Current Visit: Yes Status: Acute Qualifiers: COPD type: COPD with acute exacerbation Qualified Code(s): J44.1 - Chronic obstructive pulmonary disease with (acute) exacerbation (2) Hypoxia Current Visit: Yes Status: Acute Assessment & Plan: Dr Haq ,food court team member will consult this evening. Code(s): R09.02 - HYPOXEMIA (3) Pneumonia Current Visit: Yes Status: Acute Assessment & Plan: Is on Rocephin and Azithromax. Code(s): J18.9 - PNEUMONIA, UNSPECIFIED ORGANISM
[2021-07-01] MEDS: solu-MEDROL 80 MG, Sterile H2O 10 ml 2 ML IV SCH ×4 (15:32→21:19)
[2021-07-01] MEDS ORDERED: EMLA Cream 5 GM TP ONE (17:59)
[2021-07-01] MEDS: XANAX 1 MG PO SCH (18:16)
[2021-07-01] MEDS ORDERED: Sodium Chloride 0.9% 1000 ML 1,000 ML IV SCH (20:45)
[2021-07-01] MEDS: ROCEPHIN 1 Gm-D5w 50 ml Bag** 1 G/50 ML IVPB IV SCH (21:22)
[2021-07-02] MEDS: solu-MEDROL 80 MG, Sterile H2O 10 ml 2 ML IV SCH ×6 (04:54→21:13)
[2021-07-02] MEDS: Mucomyst 200 MG/ML IH SCH ×2 (05:14→18:53)
[2021-07-02] MEDS: DUONEB 0.5-3 MG/3 ml Neb IH SCH ×4 (05:15→18:53)
[2021-07-02] MEDS: NICODERM CQ 14 MG TOP SCH (09:31)
[2021-07-02] MEDS: Lasix 40 MG PO SCH (09:32)
[2021-07-02] MEDS: Klor Con 10 MEQ PO SCH (09:32)
[2021-07-02] MEDS: ENOXAPARIN SODIUM SQ SCH (09:32)
[2021-07-02] MEDS: Mirapex 0.5 MG Tablet PO SCH ×2 (09:32→21:14)
[2021-07-02] MEDS: Mucinex 600MG ER Tabs PO SCH ×2 (09:32→21:14)
[2021-07-02] MEDS: Protonix 40MG Tablet PO SCH (09:32)
[2021-07-02] MEDS: ECOTRIN 81 MG PO SCH (09:32)
[2021-07-02] MEDS: TENORMIN 50 MG PO SCH (09:32)
[2021-07-02] MEDS: THEOPHYLLINE ER 24HR PO SCH (09:33)
[2021-07-02] MEDS: FEOSOL 325 MG PO SCH (09:33)
[2021-07-02] MEDS: NEURONTIN 300 MG PO SCH ×3 (09:33→21:14)
[2021-07-02] MEDS: PLAVIX 75 MG Tablet PO SCH (09:33)
[2021-07-02] MEDS: ZYLOPRIM 100 MG PO SCH (09:34)
[2021-07-02] MEDS: Zithromax 500 MG/ 250 ML NaCl Premix 500 MG/250 ML IVPB IV SCH (09:34)
[2021-07-02] MEDS: Advair Hfa 115/21 Common canister IH SCH ×2 (09:55→19:00)
--- NOTE | 2021-07-02 10:23 | CONS ---
CONSULT DATE: 07/01/2021 HISTORY: Naya Vick is a 61-year-old woman with long-standing history of chronic obstructive pulmonary disease, who has been admitted to [facility] with worsening shortness of breath. The patient reportedly has been sick for the last several months. She is seen monthly by the [employer] at Dr. Edwards's office. She was also treated with outpatient steroids and antibiotic therapy. The patient reportedly got progressively worse with drop in oxygen saturation. Since admission, she has been treated with IV antibiotics, steroids and bronchodilators. The patient's lost IV access. Although she has a port, she reportedly complained of burning sensation after the same was accessed and did not allow nurses to use the same. She has not received any steroids or antibiotics during the day today. The patient's effort tolerance is extremely poor. She is barely able to walk a few feet at home for the last several months. She unfortunately continues to smoke. PAST MEDICAL HISTORY: Positive for lung cancer having undergone left upper lobectomy. She is followed by Dr. Huerta but has not been able to see him. She has history of gout, anxiety disorder, chronic obstructive pulmonary disease, hypoxemia, gastroesophageal reflux, coronary artery disease, neuropathy and hypertension. PAST SURGICAL HISTORY: As above. PERSONAL AND SOCIAL HISTORY: The patient has been a smoker. MEDICATIONS: Home and current medications are reviewed. ALLERGIES: PACLITAXEL. PHYSICAL EXAMINATION: This is a middle aged woman who appears tachypneic at rest. Vital signs noted. HEENT: Normocephalic. Oral exam shows small oropharynx. NECK: Short. CVS: First and second heart sounds are normal, regular, rhythmic. RESPIRATORY: Shows diminished breath sounds, rhonchi are heard. ABDOMEN: Obese. EXTREMITIES: Trace edema is noted. LABORATORY DATA AND TESTS: White count 13.6, hemoglobin 10, hematocrit 36, PLT count 226,000. Theophylline level was 7.0. Sodium 140, potassium 3.9, chloride 93, bicarb 39, glucose 155, BUN 35, creatinine 0.67. VBG noted. Chest x-ray 06/28/2021 reviewed as well. ASSESSMENT: This is a 61 year old woman admitted with: 1) Chronic obstructive pulmonary disease with acute exacerbation. 2) Acute bronchitis. 3) Chronic hypoxemia. 4) Nicotine addiction. 5) History of lung cancer and having undergone left upper lobectomy followed by chemo. 6) Comorbidities listed above. RECOMMENDATIONS: 1) I discussed with the patient that given she already has a port, accessing it again would be the easiest way to administer IV medications. The patient is somewhat hesitant. Discussed with nursing staff. May attempt local lidocaine application prior to accessing port to minimize burning sensation. Port has been successfully placed and used over the last two years. 2) If unable to use port the patient may require mid PICC/central line. 3) Gradual steroid taper. 4) Need for smoking cessation needs to be stressed upon discharge. 5) The patient clearly has advanced pulmonary problem and continuation of smoking is certainly not helping her improve her symptoms. She is otherwise on all appropriate therapy. I will be available as needed. Prognosis remains poor. Thank you for allowing me to participate in the care of this patient.
[2021-07-02] MEDS: NORCO 5/325 MG PO PRN (10:33)
[2021-07-02] MEDS: XANAX 1 MG PO SCH (21:14)
[2021-07-02] MEDS: ROCEPHIN 1 Gm-D5w 50 ml Bag** 1 G/50 ML IVPB IV SCH (21:15)
--- NOTE | 2021-07-03 01:07 | PCM.NOTE ---
Date and Time: 07/02/21 1350 Subjective Assessment: Patient states feeling better,not working to breath. States BiPap "is a lifesaver" Objective Exam General Appearance: mild distress (due to med going through pic is burning,no surrounding redness or edema), other (color improved, pink) Neurologic Exam: alert, oriented x 3 Skin Exam: normal color, warm, dry Respiratory Exam: diminished breath sounds (few scattered ronchi loosening since yesterday) Cardiovascular Exam: regular rate/rhythm Gastrointestinal/Abdomen Exam: soft (nontender) OBJECTIVE DATA Vital Signs: Vital Signs - 24 hr Temp Pulse Resp BP BP Pulse Ox 07/03/21 00:00 98.2 F 83 25 H 132/61 94 L 07/02/21 20:00 97.3 F 88 24 133/60 88 L 07/02/21 18:54 80 20 07/02/21 16:00 98.2 F 79 20 145/63 91 L 07/02/21 15:00 84 18 90 L 07/02/21 11:55 98 F 75 18 133/62 91 L 07/02/21 10:08 78 18 94 L 07/02/21 09:32 78 125/57 07/02/21 07:34 97.1 F 78 18 156/72 94 L 07/02/21 05:09 76 21 91 L 07/02/21 04:00 97.6 F 75 21 143/60 96 Pain Assessment - Last Documented Pain Intensity 3 Pain Scale Used 0-10 Pain Scale Intake and Output: Intake & Output 06/30/21 07/01/21 07/02/21 07/03/21 11:59 11:59 11:59 11:59 Intake Total 1320 1787 1100 Output Total 2800 2000 2100 Balance -1480 -213 -1000 Weight 139.5 kg 137 kg Multi-Disciplinary Progress Notes: Multi-Disciplinary Progress Notes 07/02/21 12:19 Case Management Note by Radha Phelan REVIEWED CHART, OXYGEN BEING WEANED DOWN. DO NOT ANTICIPATE ANY CHANGES OR NEW NEEDS AT TIME OF DC Initialized on 07/02/21 12:19 - END OF NOTE 07/02/21 10:14 Case Management Note by Radha Phelan S/W RT WHO ROUNDED WITH DR. Prudencio GUERRA- HE WILL NOT BE ORDERING A TRELOGY MACHINE FOR PATIENT Initialized on 07/02/21 10:14 - END OF NOTE Assessment/Plan (1) COPD (chronic obstructive pulmonary disease) Current Visit: Yes Status: Acute Qualifiers: COPD type: COPD with acute exacerbation Qualified Code(s): J44.1 - Chronic obstructive pulmonary disease with (acute) exacerbation (2) Hypoxia Current Visit: Yes Status: Acute Assessment & Plan: Will need BiPap at home Code(s): R09.02 - HYPOXEMIA (3) Pneumonia Current Visit: Yes Status: Acute Assessment & Plan: zithromax dc'd,continue Rocephin. Code(s): J18.9 - PNEUMONIA, UNSPECIFIED ORGANISM
[2021-07-03 05:49] LABS: Hematocrit 38.4 % (35-47); Hemoglobin 10.7 gm/dl (12.0-16.0); Mean Cell Volume 92.5 fl (78-100); Mean Corpuscular Hemoglobin 25.8 pg (26-32); Mean Corpuscular Hgb Concent. 27.9 g/dl (32-36); Mean Platelet Volume 8.5 fl (7.5-11.0); Platelet Count 227 K/mm3 (150-450); Red Blood Count 4.15 M/mm3 (4.1-5.4); Red Cell Distribution Width 16.9 % (11.5-14.0); White Blood Count 16.4 K/mm3 (4.0-10.5)
[2021-07-03 06:08] LABS: ALBUMIN 3.5 g/dL (3.5-5.0); ALKALINE PHOSPHATASE 70 U/L (38-126); BLOOD UREA NITROGEN 36 mg/dL (7-17); CHLORIDE 91 mmol/L (98-107); Calcium 8.7 mg/dL (8.4-10.2); Creatinine 1 0.79 mg/dL (0.52-1.04); EST GLOMERULAR FILTRATION RATE > 60.0 ML/MIN; Glucose 188 mg/dL (74-106); Potassium 3.9 mmol/L (3.5-5.1); SGOT/AST 22 U/L (14-36); SGPT/ALT 28 U/L (0-35); SODIUM 140 mmol/L (137-145); Total Protein 5.8 g/dL (6.3-8.2)
[2021-07-03 06:39] LABS: Carbon Dioxide 42 mmol/L (22-30)
[2021-07-03 06:40] LABS: ANION GAP 10.9 MEQ/L (5-15)
[2021-07-03] MEDS: DUONEB 0.5-3 MG/3 ml Neb IH SCH ×4 (06:47→18:19)
[2021-07-03] MEDS: Advair Hfa 115/21 Common canister IH SCH ×2 (06:47→18:19)
[2021-07-03] MEDS: solu-MEDROL 80 MG, Sterile H2O 10 ml 2 ML IV SCH ×2 (08:04)
[2021-07-03 08:13] LABS: Lymphocytes 29 % (24-44); Monocyte 2 % (0.0-12.0); Neutrophils 69 % (36.0-66.0); Total Cells Counted 100
[2021-07-03 08:14] LABS: Polychromasia 1+
[2021-07-03 08:15] LABS: Hypochromia 1+
[2021-07-03 08:16] LABS: ANISOCYTOSIS 1+; Platelet Estimate NORMAL (NORMAL)
[2021-07-03] MEDS ORDERED: ROCEPHIN 1 Gm-D5w 50 ml Bag** 1 G/50 ML IVPB IV SCH (10:00)
[2021-07-03] MEDS: Klor Con 10 MEQ PO SCH (10:43)
[2021-07-03] MEDS: ECOTRIN 81 MG PO SCH (10:43)
[2021-07-03] MEDS: Mirapex 0.5 MG Tablet PO SCH ×2 (10:44→21:26)
[2021-07-03] MEDS: Lasix 40 MG PO SCH (10:44)
[2021-07-03] MEDS: TENORMIN 50 MG PO SCH (10:44)
[2021-07-03] MEDS: Protonix 40MG Tablet PO SCH (10:44)
[2021-07-03] MEDS: Mucinex 600MG ER Tabs PO SCH ×2 (10:44→21:26)
[2021-07-03] MEDS: NEURONTIN 300 MG PO SCH ×3 (10:45→21:28)
[2021-07-03] MEDS: FEOSOL 325 MG PO SCH (10:45)
[2021-07-03] MEDS: ZYLOPRIM 100 MG PO SCH (10:45)
[2021-07-03] MEDS: PLAVIX 75 MG Tablet PO SCH (10:45)
[2021-07-03] MEDS: NICODERM CQ 14 MG TOP SCH (10:45)
[2021-07-03] MEDS: THEOPHYLLINE ER 24HR PO SCH (10:46)
[2021-07-03] MEDS: ENOXAPARIN SODIUM SQ SCH (10:46)
[2021-07-03] MEDS: DELTASONE 20 MG PO SCH ×2 (11:55→21:27)
[2021-07-03] MEDS: Zithromax 250 MG TABLET PO SCH (11:55)
[2021-07-03] MEDS: Rocephin 1000 MG INJ IM SCH (11:56)
[2021-07-03] MEDS: XYLOCAINE 1% HCL 20 ML MDV IJ SCH (11:57)
[2021-07-03] MEDS ORDERED: XYLOCAINE 1% HCL 20 ML MDV IJ PRN (12:00)
[2021-07-03] MEDS: XANAX 1 MG PO SCH (21:26)
[2021-07-04] MEDS: DUONEB 0.5-3 MG/3 ml Neb IH SCH ×4 (05:28→18:37)
[2021-07-04] MEDS: Advair Hfa 115/21 Common canister IH SCH ×2 (05:28→18:38)
[2021-07-04 05:58] LABS: Hematocrit 36.7 % (35-47); Hemoglobin 10.3 gm/dl (12.0-16.0); Mean Cell Volume 93.9 fl (78-100); Mean Corpuscular Hemoglobin 26.3 pg (26-32); Mean Corpuscular Hgb Concent. 28.1 g/dl (32-36); Mean Platelet Volume 8.7 fl (7.5-11.0); Platelet Count 233 K/mm3 (150-450); Red Blood Count 3.91 M/mm3 (4.1-5.4); White Blood Count 15.8 K/mm3 (4.0-10.5)
[2021-07-04 06:09] LABS: ALBUMIN 3.3 g/dL (3.5-5.0); ALKALINE PHOSPHATASE 65 U/L (38-126); BLOOD UREA NITROGEN 37 mg/dL (7-17); CHLORIDE 92 mmol/L (98-107); Calcium 8.3 mg/dL (8.4-10.2); EST GLOMERULAR FILTRATION RATE > 60.0 ML/MIN; Glucose 291 mg/dL (74-106); Potassium 3.6 mmol/L (3.5-5.1); SGOT/AST 21 U/L (14-36); SGPT/ALT 27 U/L (0-35); SODIUM 139 mmol/L (137-145); Total Protein 5.5 g/dL (6.3-8.2)
[2021-07-04 06:15] LABS: Carbon Dioxide 40 mmol/L (22-30)
[2021-07-04 07:01] LABS: ANION GAP 10.6 MEQ/L (5-15)
[2021-07-04] MEDS: Protonix 40MG Tablet PO SCH (08:24)
--- NOTE | 2021-07-04 08:36 | XRAY ---
Indication: Short of breath. COPD. Comparison: June 29, 2021. Portable chest again demonstrates diffuse bilateral hazy interstitial alveolar opacities grossly unchanged. Heart not enlarged again with left Port-A-Cath. No new cardiopulmonary abnormalities.
[2021-07-04 08:42] LABS: ANISOCYTOSIS 1+; Hypochromia 1+; Lymphocytes 32 % (24-44); Macrocytosis 1+; Monocyte 5 % (0.0-12.0); Neutrophils 63 % (36.0-66.0); Platelet Estimate NORMAL (NORMAL); Total Cells Counted 100
[2021-07-04] MEDS: Mucinex 600MG ER Tabs PO SCH ×2 (09:34→21:15)
[2021-07-04] MEDS: XYLOCAINE 1% HCL 20 ML MDV IJ SCH (09:35)
[2021-07-04] MEDS: TENORMIN 50 MG PO SCH (09:35)
[2021-07-04] MEDS: Lasix 40 MG PO SCH (09:36)
[2021-07-04] MEDS: Klor Con 10 MEQ PO SCH (09:36)
[2021-07-04] MEDS: Mirapex 0.5 MG Tablet PO SCH ×2 (09:36→21:15)
[2021-07-04] MEDS: Zithromax 250 MG TABLET PO SCH (09:36)
[2021-07-04] MEDS: DELTASONE 20 MG PO SCH ×2 (09:36→21:15)
[2021-07-04] MEDS: PLAVIX 75 MG Tablet PO SCH (09:36)
[2021-07-04] MEDS: ENOXAPARIN SODIUM SQ SCH (09:37)
[2021-07-04] MEDS: ECOTRIN 81 MG PO SCH (09:37)
[2021-07-04] MEDS: ZYLOPRIM 100 MG PO SCH (09:37)
[2021-07-04] MEDS: Robitussin 100 MG/5 ML PO SCH ×4 (09:37→23:26)
[2021-07-04] MEDS: THEOPHYLLINE ER 24HR PO SCH (09:37)
[2021-07-04] MEDS: NEURONTIN 300 MG PO SCH ×3 (09:37→21:15)
[2021-07-04] MEDS: NICODERM CQ 14 MG TOP SCH (09:37)
[2021-07-04] MEDS: FEOSOL 325 MG PO SCH (09:37)
[2021-07-04] MEDS: Rocephin 1000 MG INJ IM SCH (09:38)
[2021-07-04] MEDS: Nystatin SUSPENSION 60 ML PO SCH ×3 (14:13→21:16)
[2021-07-04] MEDS: XANAX 1 MG PO SCH (21:15)
[2021-07-05 05:36] LABS: Hematocrit 39.1 % (35-47); Hemoglobin 10.8 gm/dl (12.0-16.0); Mean Cell Volume 93.5 fl (78-100); Mean Corpuscular Hemoglobin 25.8 pg (26-32); Mean Corpuscular Hgb Concent. 27.6 g/dl (32-36); Mean Platelet Volume 8.9 fl (7.5-11.0); Platelet Count 222 K/mm3 (150-450); Red Blood Count 4.18 M/mm3 (4.1-5.4); Red Cell Distribution Width 16.9 % (11.5-14.0); White Blood Count 15.6 K/mm3 (4.0-10.5)
[2021-07-05 06:11] LABS: ALBUMIN 3.7 g/dL (3.5-5.0); ALKALINE PHOSPHATASE 68 U/L (38-126); BLOOD UREA NITROGEN 39 mg/dL (7-17); CHLORIDE 89 mmol/L (98-107); Calcium 8.7 mg/dL (8.4-10.2); Creatinine 1 0.74 mg/dL (0.52-1.04); EST GLOMERULAR FILTRATION RATE > 60.0 ML/MIN; Glucose 205 mg/dL (74-106); Potassium 4.4 mmol/L (3.5-5.1); SGOT/AST 27 U/L (14-36); SGPT/ALT 32 U/L (0-35); SODIUM 139 mmol/L (137-145); Total Protein 6.2 g/dL (6.3-8.2)
[2021-07-05] MEDS: Robitussin 100 MG/5 ML PO SCH ×3 (06:15→17:09)
[2021-07-05] MEDS: TENORMIN 50 MG PO SCH (06:24)
[2021-07-05] MEDS: Protonix 40MG Tablet PO SCH (06:28)
[2021-07-05 06:29] LABS: Carbon Dioxide 41 mmol/L (22-30)
[2021-07-05 06:30] LABS: ANION GAP 15.4 MEQ/L (5-15)
[2021-07-05 06:33] LABS: BAND 1 % (0.0-2.0); Lymphocytes 37 % (24-44); Monocyte 3 % (0.0-12.0); Neutrophils 59 % (36.0-66.0); Total Cells Counted 100
[2021-07-05 06:34] LABS: Platelet Estimate NORMAL (NORMAL)
[2021-07-05 06:39] LABS: Hypochromia 1+; Poikilocytosis 1+
[2021-07-05 06:40] LABS: ANISOCYTOSIS 1+
[2021-07-05] MEDS: DUONEB 0.5-3 MG/3 ml Neb IH SCH ×4 (07:12→19:20)
[2021-07-05] MEDS: Advair Hfa 115/21 Common canister IH SCH ×2 (07:15→19:20)
--- NOTE | 2021-07-05 08:39 | XRAY ---
Indication: Short of breath. Comparison: One day earlier. Portable chest continues to remain unchanged again demonstrating diffuse bilateral hazy interstitial alveolar opacities and left Port-A-Cath. Heart not enlarged. No new cardiopulmonary abnormalities.
[2021-07-05] MEDS: ENOXAPARIN SODIUM SQ SCH (09:45)
[2021-07-05] MEDS: NICODERM CQ 14 MG TOP SCH (09:46)
[2021-07-05] MEDS: Zithromax 250 MG TABLET PO SCH (09:46)
[2021-07-05] MEDS: DELTASONE 20 MG PO SCH ×2 (09:46→22:59)
[2021-07-05] MEDS: THEOPHYLLINE ER 24HR PO SCH (09:46)
[2021-07-05] MEDS: PLAVIX 75 MG Tablet PO SCH (09:47)
[2021-07-05] MEDS: Mirapex 0.5 MG Tablet PO SCH ×2 (09:47→22:58)
[2021-07-05] MEDS: Klor Con 10 MEQ PO SCH (09:48)
[2021-07-05] MEDS: ECOTRIN 81 MG PO SCH (09:48)
[2021-07-05] MEDS: Mucinex 600MG ER Tabs PO SCH ×2 (09:48→22:59)
[2021-07-05] MEDS: NEURONTIN 300 MG PO SCH ×3 (09:48→22:59)
[2021-07-05] MEDS: FEOSOL 325 MG PO SCH (09:48)
[2021-07-05] MEDS: Lasix 40 MG PO SCH (09:49)
[2021-07-05] MEDS: ZYLOPRIM 100 MG PO SCH (09:49)
[2021-07-05] MEDS: Nystatin SUSPENSION 60 ML PO SCH ×4 (09:49→23:13)
[2021-07-05] MEDS: XYLOCAINE 1% HCL 20 ML MDV IJ SCH (09:51)
[2021-07-05] MEDS: Rocephin 1000 MG INJ IM SCH (09:51)
[2021-07-05] MEDS: Mucomyst 200 MG/ML IH SCH (10:36)
[2021-07-05] MEDS: NORCO 5/325 MG PO PRN (14:43)
[2021-07-05] MEDS: XANAX 1 MG PO SCH (22:59)
[2021-07-06] MEDS: Robitussin 100 MG/5 ML PO SCH ×4 (00:46→17:12)
[2021-07-06] MEDS: Advair Hfa 115/21 Common canister IH SCH ×2 (06:57→19:17)
[2021-07-06] MEDS: DUONEB 0.5-3 MG/3 ml Neb IH SCH ×4 (06:57→19:17)
[2021-07-06] MEDS: Protonix 40MG Tablet PO SCH (08:01)
[2021-07-06] MEDS: TENORMIN 50 MG PO SCH (08:01)
[2021-07-06] MEDS: Mirapex 0.5 MG Tablet PO SCH ×2 (09:33→21:00)
[2021-07-06] MEDS: DELTASONE 20 MG PO SCH ×2 (09:33→21:00)
[2021-07-06] MEDS: NEURONTIN 300 MG PO SCH ×3 (09:33→21:00)
[2021-07-06] MEDS: Lasix 40 MG PO SCH ×2 (09:33→09:43)
[2021-07-06] MEDS: ZYLOPRIM 100 MG PO SCH (09:33)
[2021-07-06] MEDS: NICODERM CQ 14 MG TOP SCH (09:41)
[2021-07-06] MEDS: ENOXAPARIN SODIUM SQ SCH (09:41)
[2021-07-06] MEDS: Mucinex 600MG ER Tabs PO SCH ×2 (09:41→21:00)
[2021-07-06] MEDS: ECOTRIN 81 MG PO SCH (09:41)
[2021-07-06] MEDS: Klor Con 10 MEQ PO SCH (09:42)
[2021-07-06] MEDS: FEOSOL 325 MG PO SCH (09:42)
[2021-07-06] MEDS: PLAVIX 75 MG Tablet PO SCH (09:43)
[2021-07-06] MEDS: THEOPHYLLINE ER 24HR PO SCH (09:44)
[2021-07-06] MEDS: Rocephin 1000 MG INJ IM SCH (09:47)
[2021-07-06] MEDS: Nystatin SUSPENSION 60 ML PO SCH ×4 (09:48→21:00)
[2021-07-06] MEDS: XYLOCAINE 1% HCL 20 ML MDV IJ SCH (09:48)
[2021-07-06] MEDS: Zithromax 250 MG TABLET PO SCH (09:48)
[2021-07-06] MEDS: ZOLOFT 50 MG TABLET PO SCH (10:16)
[2021-07-06] MEDS: XANAX 1 MG PO SCH (21:00)
[2021-07-07] MEDS: Robitussin 100 MG/5 ML PO SCH ×4 (00:22→17:04)
[2021-07-07 06:58] LABS: Hematocrit 38.4 % (35-47); Hemoglobin 10.8 gm/dl (12.0-16.0); Mean Corpuscular Hemoglobin 26.2 pg (26-32); Mean Corpuscular Hgb Concent. 28.1 g/dl (32-36); Mean Platelet Volume 9.2 fl (7.5-11.0); Platelet Count 231 K/mm3 (150-450); Red Blood Count 4.13 M/mm3 (4.1-5.4); Red Cell Distribution Width 17.3 % (11.5-14.0); White Blood Count 17.7 K/mm3 (4.0-10.5)
[2021-07-07] MEDS: DUONEB 0.5-3 MG/3 ml Neb IH SCH ×4 (07:06→19:43)
[2021-07-07] MEDS: Advair Hfa 115/21 Common canister IH SCH ×2 (07:06→19:43)
[2021-07-07 07:07] LABS: ANION GAP 12.4 MEQ/L (5-15); BLOOD UREA NITROGEN 35 mg/dL (7-17); CHLORIDE 89 mmol/L (98-107); Calcium 8.9 mg/dL (8.4-10.2); Carbon Dioxide 39 mmol/L (22-30); Creatinine 1 0.67 mg/dL (0.52-1.04); EST GLOMERULAR FILTRATION RATE > 60.0 ML/MIN; Glucose 177 mg/dL (74-106); Potassium 4.5 mmol/L (3.5-5.1); SODIUM 136 mmol/L (137-145)
[2021-07-07] MEDS: Protonix 40MG Tablet PO SCH (07:45)
[2021-07-07] MEDS: TENORMIN 50 MG PO SCH (07:45)
[2021-07-07] MEDS: Lasix 40 MG PO SCH (09:24)
[2021-07-07] MEDS: NICODERM CQ 14 MG TOP SCH (09:24)
[2021-07-07] MEDS: Mucinex 600MG ER Tabs PO SCH ×2 (09:24→21:10)
[2021-07-07] MEDS: ENOXAPARIN SODIUM SQ SCH (09:24)
[2021-07-07] MEDS: ZOLOFT 50 MG TABLET PO SCH (09:24)
[2021-07-07] MEDS: DELTASONE 20 MG PO SCH ×2 (09:25→21:10)
[2021-07-07] MEDS: Klor Con 10 MEQ PO SCH (09:26)
[2021-07-07] MEDS: NEURONTIN 300 MG PO SCH ×3 (09:26→21:10)
[2021-07-07] MEDS: ECOTRIN 81 MG PO SCH (09:26)
[2021-07-07] MEDS: Mirapex 0.5 MG Tablet PO SCH ×2 (09:26→21:10)
[2021-07-07] MEDS: ZYLOPRIM 100 MG PO SCH (09:26)
[2021-07-07] MEDS: THEOPHYLLINE ER 24HR PO SCH (09:27)
[2021-07-07] MEDS: Zithromax 250 MG TABLET PO SCH (09:27)
[2021-07-07] MEDS: XYLOCAINE 1% HCL 20 ML MDV IJ SCH (09:28)
[2021-07-07] MEDS: FEOSOL 325 MG PO SCH (09:28)
[2021-07-07] MEDS: Rocephin 1000 MG INJ IM SCH (09:28)
[2021-07-07] MEDS: Nystatin SUSPENSION 60 ML PO SCH ×4 (09:28→21:10)
[2021-07-07] MEDS ORDERED: Ativan 0.5 MG PO PRN (11:35)
[2021-07-07] MEDS: NORCO 5/325 MG PO PRN (11:52)
[2021-07-07] MEDS: XANAX 1 MG PO SCH (21:10)
[2021-07-08] MEDS: Robitussin 100 MG/5 ML PO SCH ×2 (00:50→05:18)
[2021-07-08] MEDS: DUONEB 0.5-3 MG/3 ml Neb IH SCH (07:09)
[2021-07-08] MEDS: Klor Con 10 MEQ PO SCH (09:14)
[2021-07-08] MEDS: TENORMIN 50 MG PO SCH (09:14)
[2021-07-08] MEDS: Mirapex 0.5 MG Tablet PO SCH (09:14)
[2021-07-08] MEDS: NEURONTIN 300 MG PO SCH (09:14)
[2021-07-08] MEDS: Protonix 40MG Tablet PO SCH (09:14)
[2021-07-08] MEDS: Lasix 40 MG PO SCH (09:15)
[2021-07-08] MEDS: ZOLOFT 50 MG TABLET PO SCH (09:15)
[2021-07-08] MEDS: ENOXAPARIN SODIUM SQ SCH (09:15)
[2021-07-08] MEDS: ECOTRIN 81 MG PO SCH (09:15)
[2021-07-08] MEDS: Mucinex 600MG ER Tabs PO SCH (09:15)
[2021-07-08] MEDS: PLAVIX 75 MG Tablet PO SCH (09:15)
[2021-07-08] MEDS: FEOSOL 325 MG PO SCH (09:15)
[2021-07-08] MEDS: ZYLOPRIM 100 MG PO SCH (09:15)
[2021-07-08] MEDS: DELTASONE 20 MG PO SCH (09:15)
[2021-07-08] MEDS: NICODERM CQ 14 MG TOP SCH (09:16)
[2021-07-08] MEDS: Nystatin SUSPENSION 60 ML PO SCH (09:16)
[2021-07-08] MEDS: Rocephin 1000 MG INJ IM SCH (09:16)
== END 2021-07-08 10:05 | disposition home health service (06) | DRG 190 ==
LOC: ED 00:49 → MED SURG 05:29 → ED 06-29 00:49 → MED SURG 06-29 05:29 → INTOOBSV 06-29 10:53 → OBSVTOIN 06-29 10:53 → MED SURG 06-30 10:48
PROVIDERS: ADMIT Family Medicine; ATTEND Family Medicine
DX: J44.1 Chronic obstructive pulmonary disease with (acute) exacerbation (principal); J18.9 Pneumonia, unspecified organism; R09.02 Hypoxemia; I11.0 Hypertensive heart disease with heart failure; R77.8 Other specified abnormalities of plasma proteins; F17.200 Nicotine dependence, unspecified, uncomplicated; Z99.81 Dependence on supplemental oxygen; Z79.899 Other long term (current) drug therapy; Z85.118 Personal history of other malignant neoplasm of bronchus and lung; Z20.828 Contact with and (suspected) exposure to other viral communicable diseases; Z79.01 Long term (current) use of anticoagulants
CPT/HCPCS: 0241U; 36000; 36415; 71045; 80048; 80053; 80061; 80198; 81001; 82805; 83721; 83880; 84484; 85025; 85027; 87040; 93005; 93041; 93268; 94002; 94003; 94640; 94667; 94760; 96374; 99284; J0456; J0696; J1642; J1650; J1940; J2930; J7609; A9270-GY; G0378

== ENCOUNTER 2021-07-16 04:15 | Inpatient (IN) | payer MEDICAID ==
[2021-07-16] MEDS ORDERED: Heparin 1000 units/ml (10 Ml vial) 1,000 U in Sodium Chloride 0.9% 500 ML 500 ML IV ONE (12:17)
[2021-07-16 12:53] LABS: Hematocrit 33.4 % (35-47); Hemoglobin 9.3 gm/dl (12.0-16.0); Mean Cell Volume 95.2 fl (78-100); Mean Corpuscular Hemoglobin 26.5 pg (26-32); Mean Corpuscular Hgb Concent. 27.8 g/dl (32-36); Mean Platelet Volume 9.5 fl (7.5-11.0); Platelet Count 161 K/mm3 (150-450); Red Blood Count 3.51 M/mm3 (4.1-5.4); Red Cell Distribution Width 18.3 % (11.5-14.0)
[2021-07-16 13:03] LABS: ALBUMIN 3.4 g/dL (3.5-5.0); ALKALINE PHOSPHATASE 72 U/L (38-126); ANION GAP 10.3 MEQ/L (5-15); BLOOD UREA NITROGEN 10 mg/dL (7-17); CHLORIDE 100 mmol/L (98-107); Calcium 8.4 mg/dL (8.4-10.2); Carbon Dioxide 33 mmol/L (22-30); Creatinine 1 0.57 mg/dL (0.52-1.04); EST GLOMERULAR FILTRATION RATE > 60.0 ML/MIN; Glucose 118 mg/dL (74-106); Potassium 4.3 mmol/L (3.5-5.1); SGOT/AST 29 U/L (14-36); SGPT/ALT 45 U/L (0-35); SODIUM 139 mmol/L (137-145); Total Protein 5.9 g/dL (6.3-8.2)
--- NOTE | 2021-07-16 13:06 | XRAY ---
Indication: COPD exacerbation. Comparison: July 05, 2021. Portable chest remains unchanged again demonstrating diffuse bilateral hazy interstitial alveolar opacities without consolidation/large effusion. Heart not enlarged again with left Port-A-Cath. No new cardiopulmonary abnormalities.
[2021-07-16 13:07] LABS: A-aADO2 126; ABG HEMOGLOBIN 9.9; ABG POTASSIUM 4.2 (3.5-5.1); ARTERIAL BLD GAS O2 SATURATION 93.8 % (95-100); ARTERIAL BLOOD GAS BASE EXCESS 8.9 (-2.0-2.0); ARTERIAL BLOOD GAS FIO2 36 %; ARTERIAL BLOOD GAS PCO2 56 mmHg (35-45); ARTERIAL BLOOD GAS PO2 61 mmHg (75-100); ARTERIAL BLOOD GAS pH 7.41 (7.35-7.45); CARBOXYHEMOGLOBIN 2.6 % THgb (0.0-6.9); HCO3- 35.5 (22-28); HGB O2 SAT 90.5 g/dF (94-100); Methhemoglobin 0.9 % (1.4-1.5)
[2021-07-16 13:08] LABS: INFLUENZA A NEGATIVE (NEGATIVE); INFLUENZA B NEGATIVE (NEGATIVE); RESPIRATORY SYNCTIAL VIRUS NEGATIVE (Negative)
[2021-07-16 13:08] LABS: ABG SITE RIGHT RADIAL; ALLEN TEST OK? YES
[2021-07-16 13:09] LABS: SARS-CoV-2 Xpert Express NEGATIVE (NEGATIVE)
[2021-07-16 13:36] LABS: ANISOCYTOSIS 1+; Hypochromia 1+; Lymphocytes 24 % (24-44); Monocyte 1 % (0.0-12.0); Neutrophils 75 % (36.0-66.0); Platelet Estimate NORMAL (NORMAL); Total Cells Counted 100
[2021-07-16] MEDS ORDERED: DELTASONE 20 MG PO SCH (14:00)
[2021-07-16] MEDS: ROCEPHIN 1 Gm-D5w 50 ml Bag** 1 G/50 ML IVPB IV SCH (14:22)
[2021-07-16] MEDS: Sodium Chloride 0.9% 1000 ML 1,000 ML IV SCH (14:22)
[2021-07-16] MEDS: ENOXAPARIN SODIUM SQ SCH (14:23)
[2021-07-16] MEDS ORDERED: Ativan 2 MG/1 ML VIAL IV PRN (14:25)
[2021-07-16] MEDS: THEOPHYLLINE ER 24HR PO SCH ×2 (14:58→20:07)
[2021-07-16] MEDS ORDERED: DUONEB 0.5-3 MG/3 ml Neb IH ONE (15:21)
[2021-07-16] MEDS: DUONEB 0.5-3 MG/3 ml Neb IH SCH ×2 (15:30→19:03)
[2021-07-16] MEDS ORDERED: VENTOLIN COMMON CANISTER IH PRN (15:40)
[2021-07-16] MEDS ORDERED: DOXEPIN HCL PO PRN (16:04)
[2021-07-16] MEDS: Zithromax 500 MG/ 250 ML NaCl Premix 500 MG/250 ML IVPB IV SCH (16:20)
[2021-07-16] MEDS ORDERED: DUONEB 0.5-3 MG/3 ml Neb IH SCH (17:00)
[2021-07-16] MEDS: PATIENT OWN MEDICATION IH SCH (19:13)
[2021-07-16] MEDS: DELTASONE 20 MG PO SCH (20:06)
[2021-07-16] MEDS: XANAX 1 MG PO SCH (20:07)
[2021-07-16] MEDS: Mirapex 0.5 MG Tablet PO SCH (20:07)
[2021-07-16] MEDS: NEURONTIN 300 MG PO SCH (20:07)
[2021-07-16] MEDS ORDERED: xanAX 0.5 MG PO SCH (22:00)
[2021-07-16] MEDS ORDERED: PRAMIPEXOLE DI HCL 1.5 MG PO SCH (22:00)
[2021-07-17] MEDS: Sodium Chloride 0.9% 1000 ML 1,000 ML IV SCH (03:13)
[2021-07-17] MEDS: DUONEB 0.5-3 MG/3 ml Neb IH SCH ×4 (05:53→19:09)
[2021-07-17] MEDS: PATIENT OWN MEDICATION IH SCH ×2 (05:54→19:09)
[2021-07-17] MEDS ORDERED: TENORMIN 50 MG ONE (07:02)
[2021-07-17] MEDS ORDERED: Protonix 40MG Tablet ONE (07:02)
[2021-07-17] MEDS: TENORMIN 50 MG PO SCH (07:03)
[2021-07-17] MEDS: Protonix 40MG Tablet PO SCH (07:16)
[2021-07-17 09:59] LABS: INR 0.97 (0.8-3.0); PROTIME 11.4 SECONDS (9.4-12.5)
[2021-07-17] MEDS ORDERED: OMEPRAZOLE 20 MG PO SCH (10:00)
[2021-07-17] MEDS ORDERED: ATENOLOL 100 MG PO SCH (10:00)
[2021-07-17] MEDS ORDERED: FUROSEMIDE 80 MG PO SCH (10:00)
[2021-07-17 10:01] LABS: PTT 26.2 SECONDS (25.1-36.5)
[2021-07-17] MEDS: Ativan 1 MG PO PRN (10:31)
[2021-07-17] MEDS: NEURONTIN 300 MG PO SCH ×3 (12:19→22:12)
--- NOTE | 2021-07-17 12:53 | XRAY ---
Indication: Ultrasound guidance for PICC line placement. Initial sonographic imaging of the right upper extremity was performed for localization of patent veins. A patent basilic vein identified above the elbow. Ultrasound guidance was then used for PICC line insertion. Full PICC line insertion is reported separately.
--- NOTE | 2021-07-17 12:57 | XRAY ---
Indication: Nonfunctioning left Port-A-Cath and poor venous access. Need for antibiotic therapy. Informed consent obtained. Patient was placed on the fluoroscopic table in a supine position. Initial sonographic imaging of the right upper extremity was performed for localization of patent veins. The right upper extremity was then prepped and draped in sterile fashion. Tourniquet applied. 1% lidocaine plain used for local anesthesia. Using ultrasound guidance and a micropuncture needle, a basilic vein above the elbow was successfully percutaneously cannulized. A floppy tip 0.018 guidewire inserted. Tourniquet released. Needle was exchanged for a 5 [place] Helen[place] dilator peel-away sheath catheter. Ultimately a 5 [place] double-lumen PICC line was inserted over a longer 0.018 guidewire with the tip positioned in the distal SVC using fluoroscopic guidance. Guidewire removed. Both ports flushed with heparinized saline. Catheter was secured. Postoperative instructions and orders given. Patient discharged in good condition. Impression: Technically successful right upper extremity PICC line placement using ultrasound and fluoroscopic guidance. No immediate complications. Approximately 3 cc blood loss. Approximately 0.6 minute of fluoroscopy used. Catheter length is 44 cm.
--- NOTE | 2021-07-17 13:20 | XRAY ---
Indication: Elevated d-dimer. Multiple contiguous axial images obtained through the chest using 80 cc Isovue 370 contrast and PE protocol. Comparison: None There is adequate opacification of the pulmonary arteries. However patient body habitus and mild respiration artifact degrades exam. No obvious pulmonary embolus. Heart is borderline enlarged. Aorta minimally arteriosclerotic without aneurysm/dissection. Prominent 2.5 x 3.4 cm subcarinal and 3.1 x 2.6 cm right hilar lymph nodes. Lungs demonstrate diffuse pulmonary emphysema, right middle/left lower lobe subsegmental atelectasis/scarring, and mild bilateral dependent atelectasis. No suspicious pulmonary mass, infiltrate, or effusion. Bony thorax demonstrates lower lumbar degenerative changes. Limited upper abdomen demonstrates fatty hepatomegaly and 13.8 cm splenomegaly. Impression: 1. Patient body habitus and respiration artifact limits pulmonary embolus evaluation. No obvious pulmonary embolus. 2. Prominent subcarinal and right hilar lymph nodes possibly reactive. 3. Scattered subsegmental atelectasis/scarring and pulmonary emphysema. 4. Fatty hepatomegaly and splenomegaly.
[2021-07-17] MEDS: Lasix 40 MG PO SCH (16:27)
[2021-07-17] MEDS: Zithromax 500 MG/ 250 ML NaCl Premix 500 MG/250 ML IVPB IV SCH (16:28)
[2021-07-17] MEDS: THEOPHYLLINE ER 24HR PO SCH ×3 (16:28→22:14)
[2021-07-17] MEDS: FEOSOL 325 MG PO SCH (16:31)
[2021-07-17] MEDS: Klor Con 10 MEQ PO SCH (16:32)
[2021-07-17] MEDS: PLAVIX 75 MG Tablet PO SCH (16:35)
[2021-07-17] MEDS: ENOXAPARIN SODIUM SQ SCH (16:35)
[2021-07-17] MEDS: DELTASONE 20 MG PO SCH ×2 (16:35→22:13)
[2021-07-17] MEDS: ECOTRIN 81 MG PO SCH (16:35)
[2021-07-17] MEDS: ZYLOPRIM 100 MG PO SCH (16:35)
[2021-07-17] MEDS: ROCEPHIN 1 Gm-D5w 50 ml Bag** 1 G/50 ML IVPB IV SCH (16:48)
[2021-07-17] MEDS: XANAX 1 MG PO SCH (22:12)
[2021-07-17] MEDS: Mirapex 0.5 MG Tablet PO SCH (22:13)
[2021-07-18] MEDS: Sodium Chloride 0.9% 1000 ML 1,000 ML IV SCH ×2 (01:34→15:09)
[2021-07-18] MEDS: DUONEB 0.5-3 MG/3 ml Neb IH SCH ×5 (04:04→23:50)
[2021-07-18 04:25] LABS: A-aADO2 132; ABG HEMOGLOBIN 9.4; ABG SITE LEFT BRACHIAL; ARTERIAL BLD GAS O2 SATURATION 90.3 % (95-100); ARTERIAL BLOOD GAS FIO2 36 %; ARTERIAL BLOOD GAS PCO2 55 mmHg (35-45); ARTERIAL BLOOD GAS PO2 56 mmHg (75-100); ARTERIAL BLOOD GAS pH 7.37 (7.35-7.45); CARBOXYHEMOGLOBIN 2.4 % THgb (0.0-6.9); HCO3- 31.8 (22-28); HGB O2 SAT 87.7 g/dF (94-100); Methhemoglobin 0.6 % (1.4-1.5)
[2021-07-18] MEDS: Ativan 1 MG PO PRN (04:41)
[2021-07-18] MEDS: PATIENT OWN MEDICATION IH SCH ×2 (05:00→17:03)
[2021-07-18] MEDS ORDERED: PROVENTIL 2.5 MG/3 ML NEB IH PRN (08:37)
[2021-07-18] MEDS ORDERED: PULMICORT 0.5 MG/2 ML RESPULES IH ONE (09:30)
[2021-07-18] MEDS: TENORMIN 50 MG PO SCH (09:43)
[2021-07-18] MEDS: TYLENOL 325 MG PO PRN (09:43)
[2021-07-18] MEDS: ECOTRIN 81 MG PO SCH (09:43)
[2021-07-18] MEDS: Lasix 40 MG PO SCH (09:43)
[2021-07-18] MEDS: ZYLOPRIM 100 MG PO SCH (09:43)
[2021-07-18] MEDS: PLAVIX 75 MG Tablet PO SCH (09:44)
[2021-07-18] MEDS: Klor Con 10 MEQ PO SCH (09:44)
[2021-07-18] MEDS: NEURONTIN 300 MG PO SCH ×3 (09:44→21:33)
[2021-07-18] MEDS: FEOSOL 325 MG PO SCH (09:44)
[2021-07-18] MEDS: ENOXAPARIN SODIUM SQ SCH (09:44)
[2021-07-18] MEDS: ROCEPHIN 1 Gm-D5w 50 ml Bag** 1 G/50 ML IVPB IV SCH (09:44)
[2021-07-18] MEDS: DELTASONE 20 MG PO SCH (09:44)
[2021-07-18] MEDS: Protonix 40MG Tablet PO SCH (09:44)
[2021-07-18] MEDS: Singulair 10 MG PO SCH (09:44)
[2021-07-18] MEDS: THEOPHYLLINE ER 24HR PO SCH ×3 (09:44→21:33)
[2021-07-18] MEDS: PULMICORT 0.5 MG/2 ML RESPULES IH SCH ×2 (09:48→17:03)
[2021-07-18] MEDS: Spiriva 18 Mcg/Cap Inhaler IH SCH (09:48)
[2021-07-18] MEDS: Zithromax 500 MG/ 250 ML NaCl Premix 500 MG/250 ML IVPB IV SCH (10:39)
[2021-07-18 10:46] LABS: BASOPHIL % 0.4 % (0.0-0.4); Basophil (Absolute #) 0.03 (0-0.4); Eosinophil % 0.3 % (0.00-5.0); Eosinophil (Absolute #) 0.02 (0-0.5); Hematocrit 32.1 % (35-47); Hemoglobin 8.7 gm/dl (12.0-16.0); Lymphocyte (Absolute #) 1.38 (1.0-4.6); Lymphocytes % 20.7 % (24.0-44.0); Mean Cell Volume 96.4 fl (78-100); Mean Corpuscular Hemoglobin 26.1 pg (26-32); Mean Corpuscular Hgb Concent. 27.1 g/dl (32-36); Monocyte (Absolute #) 0.14 (0.0-1.3); Monocytes % 2.1 % (0.0-12.0); Neutrophil % 76.5 % (36.0-66.0); Platelet Count 149 K/mm3 (150-450); Red Blood Count 3.33 M/mm3 (4.1-5.4); Red Cell Distribution Width 18.5 % (11.5-14.0); White Blood Count 6.7 K/mm3 (4.0-10.5)
[2021-07-18 15:55] LABS: Slide Review 1 YES
[2021-07-18] MEDS: Mirapex 0.5 MG Tablet PO SCH (21:32)
[2021-07-18] MEDS: XANAX 1 MG PO SCH (21:33)
[2021-07-18] MEDS ORDERED: DELTASONE 20 MG PO SCH (22:00)
[2021-07-19] MEDS: Sodium Chloride 0.9% 1000 ML 1,000 ML IV SCH ×2 (03:39→19:29)
[2021-07-19] MEDS: DUONEB 0.5-3 MG/3 ml Neb IH SCH ×6 (03:57→23:33)
[2021-07-19 05:43] LABS: Hematocrit 29.5 % (35-47); Hemoglobin 8.1 gm/dl (12.0-16.0); Mean Cell Volume 94.2 fl (78-100); Mean Corpuscular Hemoglobin 25.9 pg (26-32); Mean Corpuscular Hgb Concent. 27.5 g/dl (32-36); Mean Platelet Volume 9.1 fl (7.5-11.0); Platelet Count 151 K/mm3 (150-450); Red Blood Count 3.13 M/mm3 (4.1-5.4); White Blood Count 7.2 K/mm3 (4.0-10.5)
[2021-07-19 06:04] LABS: ALBUMIN 3.2 g/dL (3.5-5.0); ALKALINE PHOSPHATASE 63 U/L (38-126); ANION GAP 10.5 MEQ/L (5-15); BLOOD UREA NITROGEN 17 mg/dL (7-17); CHLORIDE 100 mmol/L (98-107); Calcium 8.2 mg/dL (8.4-10.2); Carbon Dioxide 32 mmol/L (22-30); Creatinine 1 0.56 mg/dL (0.52-1.04); EST GLOMERULAR FILTRATION RATE > 60.0 ML/MIN; Glucose 277 mg/dL (74-106); Potassium 4.2 mmol/L (3.5-5.1); SGOT/AST 18 U/L (14-36); SGPT/ALT 30 U/L (0-35); SODIUM 139 mmol/L (137-145); Total Protein 5.3 g/dL (6.3-8.2)
[2021-07-19 06:32] LABS: Slide Review YES
[2021-07-19] MEDS: PULMICORT 0.5 MG/2 ML RESPULES IH SCH ×2 (06:45→18:48)
[2021-07-19] MEDS: Spiriva 18 Mcg/Cap Inhaler IH SCH (06:51)
[2021-07-19] MEDS: PATIENT OWN MEDICATION IH SCH ×2 (06:52→18:48)
--- NOTE | 2021-07-19 08:29 | XRAY ---
Indication: COPD exacerbation. Comparison: July 16, 2021. Portable apical lordotic chest demonstrates new right arm PICC line with stable left Port-A-Cath. New right infrahilar infiltrate/atelectasis. New borderline cardiomegaly with small left effusion concerning for cardiac decompensation versus fluid overload. Bony thorax intact.
[2021-07-19] MEDS: TENORMIN 50 MG PO SCH (09:04)
[2021-07-19] MEDS: Lasix 40 MG PO SCH (09:05)
[2021-07-19] MEDS: Singulair 10 MG PO SCH (09:05)
[2021-07-19] MEDS: ZYLOPRIM 100 MG PO SCH (09:05)
[2021-07-19] MEDS: ECOTRIN 81 MG PO SCH (09:05)
[2021-07-19] MEDS: Protonix 40MG Tablet PO SCH (09:05)
[2021-07-19] MEDS: Klor Con 10 MEQ PO SCH ×2 (09:05→21:12)
[2021-07-19] MEDS: NEURONTIN 300 MG PO SCH ×3 (09:05→21:11)
[2021-07-19] MEDS: PLAVIX 75 MG Tablet PO SCH (09:05)
[2021-07-19] MEDS: FEOSOL 325 MG PO SCH (09:05)
[2021-07-19] MEDS: THEOPHYLLINE ER 24HR PO SCH ×3 (09:06→21:12)
--- NOTE | 2021-07-19 09:23 | CONS ---
CONSULT DATE: 07/17/2021 HISTORY OF PRESENT ILLNESS: Ms. Vikc is a 61 y/o morbidly obese woman, with history of advanced chronic obstructive pulmonary disease and prior history of lung cancer apparently in remission, who has been hospitalized at [facility]. The patient reportedly was treated and was discharged. However, she did come back with recurrence of symptoms. She is being started on IV antibiotics, steroids, and bronchodilators and reports some improvement. Unfortunately, patient has continued to smoke until 2 weeks ago. PAST MEDICAL HISTORY: Positive for history of advanced chronic obstructive pulmonary disease, chronic hypoxemia. Her effort tolerance has been significantly reduced. Has history of hypertension, coronary artery disease, history of lung cancer having undergone left upper lobe lobectomy. Patient is treated by Dr. Huerta and apparently is in remission. History of gout. PAST SURGICAL HISTORY: As above. PERSONAL AND SOCIAL HISTORY: As noted. PHYSICAL EXAMINATION: This is a middle-aged woman who appears mildly short of breath. VITAL SIGNS: Noted. HEENT: Normocephalic. Oral exam is limited. CVS: 1st and 2nd heart sounds normal, regular rhythm. RESPIRATORY: Shows diminished breath sounds. Scattered rhonchi are heard. ABDOMEN: Obese. EXTREMITIES: 2+ leg edema is noted. LABORATORY DATA: PTT is 26, INR is 0.9. WBC 8, Hgb 9.3, Hct 33, platelets 161. D-dimer is 767. COVID-19 test and influenza are negative. Sodium 139, potassium 4.3, chloride 100, bicarb 33, glucose 118, BUN 10, creatinine 0.5. ABG shows pH of 7.41, PCO2 56, and PO2 61. A chest CT with contrast shows no obvious pulmonary embolism, prominence of subcarinal and right hilar nodes possibly reactive, scattered subsegmental atelectasis, and hepatosplenomegaly is seen. ASSESSMENT: This is a 61 y /o woman readmitted with: 1. CHRONIC OBSTRUCTIVE PULMONARY DISEASE WITH ACUTE EXACERBATION. 2. ACUTE BRONCHITIS. 3. CHRONIC HYPOXEMIA. 4. COMPENSATED HYPERCAPNEA. 5. HISTORY OF LUNG CANCER HAVING UNDERGONE LEFT UPPER LOBE LOBECTOMY IN 2019 FOLLOWED BY CHEMO AND RADIATION IN REMISSION. 6. NICOTINE ADDICTION. 7. MORBID OBESITY. 8. COMORBID LISTED ABOVE. RECOMMENDATIONS: Patient is again started on steroids and antibiotics along with deep vein thrombosis prophylaxis. Continue bronchodilators. Need for complete smoking cessation was stressed. OT/PT evaluation. Possible discharge home when clinically improved with recommendations to follow-up in outpatient setting. Thank you for allowing me to participate in the care of Ms. Vick.
--- NOTE | 2021-07-19 10:06 | PCM.NOTE ---
Date and Time: 07/19/21 1000 Subjective Assessment: patient remains hypoxic and requiring high flow oxygen, she is getting some sputum production up but still wheezing and short of breath. Objective Exam General Appearance: no apparent distress, obese Neurologic Exam: alert, oriented x 3 Respiratory Exam: accessory muscle use, wheezing Cardiovascular Exam: regular rate/rhythm, normal heart sounds Gastrointestinal/Abdomen Exam: soft, No tenderness, No mass Extremity Exam: normal inspection, normal range of motion OBJECTIVE DATA Vital Signs: Vital Signs - 24 hr Temp Pulse Resp BP Pulse Ox 07/19/21 09:34 113 H 24 88 L 07/19/21 07:48 97.7 F 101 H 21 117/56 93 L 07/19/21 06:52 94 H 22 93 L 07/19/21 04:19 98.2 F 95 H 20 120/56 96 07/19/21 03:58 94 H 20 95 07/18/21 23:50 95 H 22 95 07/18/21 23:39 97.5 F 97 H 22 123/59 94 L 07/18/21 19:54 98.0 F 109 H 24 132/56 94 L 07/18/21 17:07 93 H 24 95 07/18/21 16:00 97.5 F 97 H 22 127/56 92 L 07/18/21 14:10 100 H 22 94 L 07/18/21 12:00 97.8 F 96 H 24 122/57 92 L Pain Assessment - Last Documented Pain Intensity 3 Pain Scale Used 0-10 Pain Scale Intake and Output: Intake & Output 07/16/21 07/17/21 07/18/21 07/19/21 11:59 11:59 11:59 11:59 Intake Total 1200 1653 3188 Output Total 2900 Balance 1200 1653 288 Weight 139.5 kg Lab Results: Lab Results-Last 24 Hours 07/18/21 07/19/21 07/19/21 Range/Units 05:45 05:05 05:05 WBC 6.7 7.2 (4.0-10.5) K/mm3 RBC 3.33 L 3.13 L (4.1-5.4) M/mm3 Hgb 8.7 L 8.1 L (12.0-16.0) gm/dl Hct 32.1 L 29.5 L (35-47) % MCV 96.4 94.2 (78-100) fl MCH 26.1 25.9 L (26-32) pg MCHC 27.1 L 27.5 L (32-36) g/dl RDW 18.5 H 18.0 H (11.5-14.0) % Plt Count 149 L 151 (150-450) K/mm3 MPV 10.0 9.1 (7.5-11.0) fl Gran % 76.5 H (36.0-66.0) % Eos # (Auto) 0.02 (0-0.5) Absolute Lymphs (auto) 1.38 (1.0-4.6) Absolute Monos (auto) 0.14 (0.0-1.3) Lymphocytes % 20.7 L (24.0-44.0) % Monocytes % 2.1 (0.0-12.0) % Eosinophils % 0.3 (0.00-5.0) % Basophils % 0.4 (0.0-0.4) % Absolute Granulocytes 5.10 (1.4-6.9) Basophils # 0.03 (0-0.4) Sodium 139 (137-145) mmol/L Potassium 4.2 (3.5-5.1) mmol/L Chloride 100 (98-107) mmol/L Carbon Dioxide 32 H (22-30) mmol/L Anion Gap 10.5 (5-15) MEQ/L BUN 17 (7-17) mg/dL Creatinine 0.56 (0.52-1.04) mg/dL Estimated GFR > 60.0 ML/MIN Glucose 277 H (74-106) mg/dL Calcium 8.2 L (8.4-10.2) mg/dL Total Bilirubin 0.30 (0.2-1.3) mg/dL AST 18 (14-36) U/L ALT 30 (0-35) U/L Alkaline Phosphatase 63 (38-126) U/L Serum Total Protein 5.3 L (6.3-8.2) g/dL Albumin 3.2 L (3.5-5.0) g/dL Slides for Path Review YES YES Radiology Exams: Radiology Procedures Category Date Time Status CHEST 1 VIEW (PORTABLE) Routine Exams 07/19/21 07:00 Completed CHEST WITH CONTRAST [CT] Urgent Exams 07/17/21 12:31 Completed GUIDE FOR VASCULAR ACCESS [US] Routine Exams 07/17/21 12:00 Completed PICC LINE PLACEMENT Urgent Exams 07/17/21 10:00 Completed Assessment/Plan (1) Acute exacerbation of chronic obstructive airways disease Current Visit: Yes Status: Acute Assessment & Plan: change from po prednisone to IV solu medrol, nebs and antibiotics. Code(s): J44.1 - CHRONIC OBSTRUCTIVE PULMONARY DISEASE W (ACUTE) EXACERBATION (2) Pneumonia Current Visit: Yes Status: Acute Assessment & Plan: rocephin and zithromax Code(s): J18.9 - PNEUMONIA, UNSPECIFIED ORGANISM (3) End stage COPD Current Visit: Yes Status: Acute Code(s): J44.9 - CHRONIC OBSTRUCTIVE PULMONARY DISEASE, UNSPECIFIED
[2021-07-19] MEDS: DELTASONE 20 MG PO SCH (10:11)
[2021-07-19] MEDS: ROCEPHIN 1 Gm-D5w 50 ml Bag** 1 G/50 ML IVPB IV SCH (10:20)
[2021-07-19] MEDS: ENOXAPARIN SODIUM SQ SCH (10:22)
[2021-07-19] MEDS: Ativan 1 MG PO PRN (10:26)
[2021-07-19] MEDS: Zithromax 500 MG/ 250 ML NaCl Premix 500 MG/250 ML IVPB IV SCH (11:27)
[2021-07-19] MEDS ORDERED: solu-MEDROL W/DILUENT 500 MG IV SCH (12:00)
[2021-07-19] MEDS: solu-MEDROL IV SCH ×3 (13:30→23:59)
[2021-07-19] MEDS: Lasix 40 MG/4 ML IV SCH (16:30)
[2021-07-19] MEDS: TYLENOL 325 MG PO PRN (20:24)
[2021-07-19] MEDS: Mucinex 600MG ER Tabs PO SCH (21:11)
[2021-07-19] MEDS: XANAX 1 MG PO SCH (21:11)
[2021-07-19] MEDS: Mirapex 0.5 MG Tablet PO SCH (21:11)
[2021-07-20] MEDS: DUONEB 0.5-3 MG/3 ml Neb IH SCH ×6 (03:48→23:27)
[2021-07-20] MEDS: solu-MEDROL IV SCH ×3 (05:13→17:27)
[2021-07-20 06:42] LABS: Hematocrit 31.1 % (35-47); Hemoglobin 8.5 gm/dl (12.0-16.0); Mean Corpuscular Hemoglobin 25.7 pg (26-32); Mean Corpuscular Hgb Concent. 27.3 g/dl (32-36); Mean Platelet Volume 10.2 fl (7.5-11.0); Platelet Count 160 K/mm3 (150-450); Red Blood Count 3.31 M/mm3 (4.1-5.4); Red Cell Distribution Width 17.5 % (11.5-14.0)
[2021-07-20] MEDS: PULMICORT 0.5 MG/2 ML RESPULES IH SCH ×3 (07:41→19:13)
[2021-07-20] MEDS: Spiriva 18 Mcg/Cap Inhaler IH SCH (07:49)
[2021-07-20] MEDS: PATIENT OWN MEDICATION IH SCH ×2 (07:50→19:12)
[2021-07-20] MEDS: Ativan 1 MG PO PRN ×2 (07:54→14:09)
[2021-07-20] MEDS: NEURONTIN 300 MG PO SCH ×3 (07:54→21:40)
[2021-07-20] MEDS: Mucinex 600MG ER Tabs PO SCH ×2 (07:55→21:40)
[2021-07-20] MEDS: FEOSOL 325 MG PO SCH (07:55)
[2021-07-20] MEDS: Singulair 10 MG PO SCH (07:55)
[2021-07-20] MEDS: ZYLOPRIM 100 MG PO SCH (07:55)
[2021-07-20] MEDS: TENORMIN 50 MG PO SCH (07:55)
[2021-07-20] MEDS: Klor Con 10 MEQ PO SCH ×2 (07:55→21:40)
[2021-07-20] MEDS: ECOTRIN 81 MG PO SCH (07:55)
[2021-07-20] MEDS: Protonix 40MG Tablet PO SCH (07:56)
[2021-07-20] MEDS: THEOPHYLLINE ER 24HR PO SCH ×3 (07:56→21:40)
[2021-07-20] MEDS: PLAVIX 75 MG Tablet PO SCH (07:56)
[2021-07-20] MEDS: Lasix 40 MG/4 ML IV SCH ×2 (07:56→17:27)
[2021-07-20] MEDS: Sodium Chloride 0.9% 1000 ML 1,000 ML IV SCH ×4 (07:57→21:43)
[2021-07-20] MEDS: ENOXAPARIN SODIUM SQ SCH (07:57)
[2021-07-20] MEDS: ROCEPHIN 1 Gm-D5w 50 ml Bag** 1 G/50 ML IVPB IV SCH (07:58)
[2021-07-20] MEDS: Zithromax 500 MG/ 250 ML NaCl Premix 500 MG/250 ML IVPB IV SCH (07:58)
[2021-07-20 08:08] LABS: ANION GAP 9.4 MEQ/L (5-15); BLOOD UREA NITROGEN 23 mg/dL (7-17); CHLORIDE 98 mmol/L (98-107); Calcium 8.1 mg/dL (8.4-10.2); Carbon Dioxide 33 mmol/L (22-30); Creatinine 1 0.65 mg/dL (0.52-1.04); EST GLOMERULAR FILTRATION RATE > 60.0 ML/MIN; Glucose 318 mg/dL (74-106); MAGNESIUM 1.9 mg/dL (1.6-2.3); NT PRO BNP 303 pg/mL (0-900); Potassium 3.6 mmol/L (3.5-5.1); SODIUM 138 mmol/L (137-145)
[2021-07-20 09:48] LABS: BAND 2 % (0.0-2.0); Lymphocytes 23 % (24-44); Monocyte 1 % (0.0-12.0); Neutrophils 74 % (36.0-66.0); Nucleated Red Blood Cell 1 %; Platelet Estimate NORMAL (NORMAL); Total Cells Counted 100
[2021-07-20 09:49] LABS: ANISOCYTOSIS 1+; Basophilic Stippling 1+; Hypochromia 1+; Poikilocytosis 1+; Polychromasia 1+; Tear Drop Cells 1+
--- NOTE | 2021-07-20 13:59 | PCM.NOTE ---
Date and Time: 07/20/21 1656 Subjective Assessment: Patient states she has urinated alot with the IV Lasix and that it has helped her breathing. OBJECTIVE DATA Vital Signs: Vital Signs - 24 hr Temp Pulse Resp BP Pulse Ox 07/20/21 12:00 97.1 F 96 H 23 161/73 95 07/20/21 11:10 93 H 20 99 07/20/21 08:00 97.5 F 95 H 23 129/58 94 L 07/20/21 07:41 97 H 24 91 L 07/20/21 04:00 97.5 F 98 H 20 148/61 93 L 07/20/21 03:49 100 H 20 94 L 07/20/21 00:00 97.3 F 103 H 20 123/53 87 L 07/19/21 23:34 84 18 92 L 07/19/21 19:47 97.8 F 107 H 20 115/82 90 L 07/19/21 18:51 102 H 20 92 L 07/19/21 16:00 97.5 F 100 H 24 145/67 91 L 07/19/21 15:11 93 L 07/19/21 14:40 98 H 20 96 Pain Assessment - Last Documented Pain Intensity 0 Pain Scale Used 0-10 Pain Scale Intake and Output: Intake & Output 07/18/21 07/19/21 07/20/21 07/21/21 11:59 11:59 11:59 11:59 Intake Total 1653 3188 2295 Output Total 2900 6600 Balance 1653 288 -4305 Lab Results: Lab Results-Last 24 Hours 07/20/21 07/20/21 Range/Units 06:07 06:07 WBC 7.0 (4.0-10.5) K/mm3 RBC 3.31 L (4.1-5.4) M/mm3 Hgb 8.5 L (12.0-16.0) gm/dl Hct 31.1 L (35-47) % MCV 94.0 (78-100) fl MCH 25.7 L (26-32) pg MCHC 27.3 L (32-36) g/dl RDW 17.5 H (11.5-14.0) % Plt Count 160 (150-450) K/mm3 MPV 10.2 (7.5-11.0) fl Segmented Neutrophils 74 H (36.0-66.0) % Band Neutrophils 2 (0.0-2.0) % Lymphocytes (Manual) 23 L (24-44) % Monocytes (Manual) 1 (0.0-12.0) % Nucleated RBCs 1 % Hypochromia 1+ Platelet Estimate NORMAL (NORMAL) RBC Morphology ABNORMAL Polychromasia 1+ Poikilocytosis 1+ Basophilic Stippling 1+ Anisocytosis 1+ Tear Drop Cells 1+ Sodium 138 (137-145) mmol/L Potassium 3.6 (3.5-5.1) mmol/L Chloride 98 (98-107) mmol/L Carbon Dioxide 33 H (22-30) mmol/L Anion Gap 9.4 (5-15) MEQ/L BUN 23 H (7-17) mg/dL Creatinine 0.65 (0.52-1.04) mg/dL Estimated GFR > 60.0 ML/MIN Glucose 318 H (74-106) mg/dL Calcium 8.1 L (8.4-10.2) mg/dL Magnesium 1.9 (1.6-2.3) mg/dL NT-Pro-B Natriuret Pep 303 (0-900) pg/mL Radiology Exams: Radiology Procedures Category Date Time Status CHEST 1 VIEW (PORTABLE) Routine Exams 07/19/21 07:00 Completed
[2021-07-20] MEDS: Mirapex 0.5 MG Tablet PO SCH (21:40)
[2021-07-20] MEDS: XANAX 1 MG PO SCH (21:40)
[2021-07-21] MEDS: solu-MEDROL IV SCH ×4 (00:27→17:43)
[2021-07-21] MEDS: DUONEB 0.5-3 MG/3 ml Neb IH SCH ×6 (03:19→22:22)
[2021-07-21] MEDS: TENORMIN 50 MG PO SCH (06:12)
[2021-07-21] MEDS: Protonix 40MG Tablet PO SCH (06:12)
[2021-07-21] MEDS: PULMICORT 0.5 MG/2 ML RESPULES IH SCH ×2 (07:54→19:27)
[2021-07-21] MEDS: Spiriva 18 Mcg/Cap Inhaler IH SCH (07:57)
[2021-07-21] MEDS: PATIENT OWN MEDICATION IH SCH ×2 (07:58→19:26)
[2021-07-21] MEDS: Singulair 10 MG PO SCH (09:04)
[2021-07-21] MEDS: Klor Con 10 MEQ PO SCH ×2 (09:04→21:23)
[2021-07-21] MEDS: ECOTRIN 81 MG PO SCH (09:04)
[2021-07-21] MEDS: FEOSOL 325 MG PO SCH (09:04)
[2021-07-21] MEDS: NEURONTIN 300 MG PO SCH ×3 (09:04→21:24)
[2021-07-21] MEDS: Mucinex 600MG ER Tabs PO SCH ×2 (09:05→21:24)
[2021-07-21] MEDS: ZYLOPRIM 100 MG PO SCH (09:05)
[2021-07-21] MEDS: Lasix 40 MG/4 ML IV SCH ×2 (09:05→17:12)
[2021-07-21] MEDS: THEOPHYLLINE ER 24HR PO SCH ×2 (09:05→21:24)
[2021-07-21] MEDS: PLAVIX 75 MG Tablet PO SCH (09:06)
[2021-07-21] MEDS: ROCEPHIN 1 Gm-D5w 50 ml Bag** 1 G/50 ML IVPB IV SCH (09:06)
[2021-07-21] MEDS: ENOXAPARIN SODIUM SQ SCH (09:06)
[2021-07-21] MEDS: Zithromax 500 MG/ 250 ML NaCl Premix 500 MG/250 ML IVPB IV SCH (10:14)
[2021-07-21] MEDS: Ativan 1 MG PO PRN ×2 (10:54→15:43)
--- NOTE | 2021-07-21 15:46 | PCM.NOTE ---
Date and Time: 07/21/21 1540 Subjective Assessment: c/o abd swelling after eating,chronic but worse and affects breathing.Still has GB. Objective Exam Neurologic Exam: alert, oriented x 3, cooperative, normal mood/affect Skin Exam: normal color (pink today), warm, dry Eye Exam: eyes nml inspection Ears, Nose, Throat Exam: normal ENT inspection Respiratory Exam: wheezing (eew mid bilateral,diminished bases) Cardiovascular Exam: regular rate/rhythm Gastrointestinal/Abdomen Exam: tenderness (RUQ), distention Extremity Exam: pedal edema (edema 1+/4 pretibial) OBJECTIVE DATA Vital Signs: Vital Signs - 24 hr Temp Pulse Resp BP BP Pulse Ox 07/21/21 15:27 97.7 F 95 H 20 121/56 98 07/21/21 15:23 98 H 20 97 07/21/21 12:00 97.1 F 92 H 20 141/63 99 07/21/21 11:32 89 20 98 07/21/21 08:00 97.7 F 86 20 124/64 98 07/21/21 07:59 82 20 99 07/21/21 06:12 98 H 132/63 07/21/21 04:00 96.9 F 99 H 24 132/63 95 07/21/21 03:20 98 H 20 95 07/20/21 23:50 97.5 F 105 H 20 118/55 96 07/20/21 23:27 105 H 20 96 07/20/21 20:00 97.5 F 105 H 28 H 132/60 93 L 07/20/21 19:22 95 H 20 95 07/20/21 16:00 97.5 F 95 H 21 140/63 93 L Pain Assessment - Last Documented Pain Intensity 0 Pain Scale Used 0-10 Pain Scale Intake and Output: Intake & Output 07/19/21 07/20/21 07/21/21 07/22/21 11:59 11:59 11:59 11:59 Intake Total 3188 2295 1722 200 Output Total 2900 6600 1650 1100 Balance 288 4305 72 -900 Weight 139.5 kg Multi-Disciplinary Progress Notes: Multi-Disciplinary Progress Notes 07/21/21 09:24 Pharmacy Note by Chan Figueredo Today is day 6 of Rocephin and Zithromax. Please review if these are still needed. Initialized on 07/21/21 09:24 - END OF NOTE Assessment/Plan (1) Acute exacerbation of chronic obstructive airways disease Current Visit: Yes Status: Acute Assessment & Plan: eew ,improved aeration Code(s): J44.1 - CHRONIC OBSTRUCTIVE PULMONARY DISEASE W (ACUTE) EXACERBATION (2) Upper abdominal pain, unspecified Current Visit: Yes Status: Acute Assessment & Plan: acute and chronic ,after eating Code(s): R10.10 - UPPER ABDOMINAL PAIN, UNSPECIFIED (3) Edema Current Visit: Yes Status: Chronic Assessment & Plan: acute and chronic-improved breathing with diuresis Code(s): R60.9 - EDEMA, UNSPECIFIED
[2021-07-21] MEDS: Mirapex 0.5 MG Tablet PO SCH (21:23)
[2021-07-21] MEDS: XANAX 1 MG PO SCH (21:24)
[2021-07-22] MEDS: solu-MEDROL IV SCH ×5 (00:03→23:36)
[2021-07-22] MEDS: DUONEB 0.5-3 MG/3 ml Neb IH SCH ×6 (02:02→23:24)
[2021-07-22] MEDS: PULMICORT 0.5 MG/2 ML RESPULES IH SCH ×2 (06:50→18:42)
[2021-07-22] MEDS: Spiriva 18 Mcg/Cap Inhaler IH SCH (06:51)
[2021-07-22] MEDS: PATIENT OWN MEDICATION IH SCH ×2 (06:52→18:42)
[2021-07-22] MEDS: Protonix 40MG Tablet PO SCH (07:08)
[2021-07-22] MEDS: Ativan 1 MG PO PRN ×3 (07:08→18:34)
[2021-07-22] MEDS: TENORMIN 50 MG PO SCH (07:08)
[2021-07-22] MEDS: Sodium Chloride 0.9% 1000 ML 1,000 ML IV SCH ×3 (07:52→12:54)
[2021-07-22] MEDS: ROCEPHIN 1 Gm-D5w 50 ml Bag** 1 G/50 ML IVPB IV SCH (08:49)
[2021-07-22] MEDS: Lasix 40 MG/4 ML IV SCH ×2 (08:50→15:32)
[2021-07-22] MEDS: Zithromax 500 MG/ 250 ML NaCl Premix 500 MG/250 ML IVPB IV SCH (08:50)
[2021-07-22] MEDS: ENOXAPARIN SODIUM SQ SCH (08:50)
[2021-07-22] MEDS: THEOPHYLLINE ER 24HR PO SCH ×2 (08:51→22:04)
[2021-07-22] MEDS: NYSTOP POWDER 15 GM TP SCH ×2 (08:51→22:04)
[2021-07-22] MEDS: Nystatin SUSPENSION 60 ML PO SCH ×3 (08:51→22:03)
[2021-07-22] MEDS: Singulair 10 MG PO SCH (08:51)
[2021-07-22] MEDS: PLAVIX 75 MG Tablet PO SCH (08:51)
[2021-07-22] MEDS: FEOSOL 325 MG PO SCH (08:51)
[2021-07-22] MEDS: NEURONTIN 300 MG PO SCH ×3 (08:51→22:03)
[2021-07-22] MEDS: Klor Con 10 MEQ PO SCH ×2 (08:51→22:03)
[2021-07-22] MEDS: ZYLOPRIM 100 MG PO SCH (08:51)
[2021-07-22] MEDS: Mucinex 600MG ER Tabs PO SCH ×2 (08:51→22:03)
[2021-07-22] MEDS: ECOTRIN 81 MG PO SCH (08:51)
--- NOTE | 2021-07-22 11:11 | XRAY ---
Indication: Abdomen pain. Two-dimensional right upper quadrant abdominal sonogram performed. Comparison: None Sonogram limited due to patient body habitus and bowel gas. Visualized liver demonstrates fatty echogenicity without focal solid/cystic mass or ascites. Gallbladder normally distended with minimal sludge. No gallstones, wall thickening, or pericholecystic fluid. Common bile duct measures 4 mm. Visualized pancreas and right kidney sonographically unremarkable. Right kidney measures 10.8 cm in length. Impression: Limited sonogram. Fatty liver.
--- NOTE | 2021-07-22 12:58 | PCM.NOTE ---
Date and Time: 07/22/21 1253 Subjective Assessment: Patient had GBUS today showing sludge and fatty liver. States still urinating alot,still pitting edema. States aniket sob in shower this morning. Does feel breathing is improving. Objective Exam General Appearance: mild distress (sob) Neurologic Exam: alert, oriented x 3, cooperative, normal mood/affect Skin Exam: normal color, warm, dry Ears, Nose, Throat Exam: moist mucous membranes, other (TMs cloudy no erythema) Respiratory Exam: diminished breath sounds, wheezing Cardiovascular Exam: regular rate/rhythm Gastrointestinal/Abdomen Exam: soft, normal bowel sounds (nontender) Extremity Exam: other (pitting edema pretibial and pedal bilaterally-softer than on admission) OBJECTIVE DATA Vital Signs: Vital Signs - 24 hr Temp Pulse Resp BP Pulse Ox 07/22/21 12:00 97.5 F 90 18 115/57 96 07/22/21 11:06 97 H 24 96 07/22/21 07:54 98.2 F 78 18 122/58 93 L 07/22/21 07:21 93 H 18 97 07/22/21 04:00 97.7 F 95 H 16 137/62 95 07/22/21 02:03 98 H 24 96 07/22/21 00:00 97.7 F 94 H 16 115/53 97 07/21/21 22:24 97 H 20 94 L 07/21/21 20:00 97.8 F 101 H 20 136/60 95 07/21/21 19:31 78 24 97 07/21/21 15:27 97.7 F 95 H 20 121/56 98 07/21/21 15:23 98 H 20 97 Pain Assessment - Last Documented Pain Intensity 0 Pain Scale Used 0-10 Pain Scale Intake and Output: Intake & Output 07/20/21 07/21/21 07/22/21 07/23/21 11:59 11:59 11:59 11:59 Intake Total 2295 1722 1795 Output Total 3220 1650 2300 Balance -4305 72 -505 Weight 139.5 kg 142.8 kg Radiology Exams: Radiology Procedures Category Date Time Status ABDOMINAL-LIMITED [US] Routine Exams 07/22/21 Completed Assessment/Plan (1) Acute exacerbation of chronic obstructive airways disease Current Visit: Yes Status: Acute Assessment & Plan: improved aeration on IV meds and neb tx.O2 at 8L oxymizer. Code(s): J44.1 - CHRONIC OBSTRUCTIVE PULMONARY DISEASE W (ACUTE) EXACERBATION (2) Upper abdominal pain, unspecified Current Visit: Yes Status: Resolved Assessment & Plan: GBUS sludge and fatty liver Code(s): R10.10 - UPPER ABDOMINAL PAIN, UNSPECIFIED (3) Edema Current Visit: Yes Status: Chronic Assessment & Plan: improved Code(s): R60.9 - EDEMA, UNSPECIFIED (4) Sleep apnea Current Visit: Yes Status: Acute Qualifiers: Sleep apnea type: unspecified type Qualified Code(s): G47.30 - Sleep apnea, unspecified Assessment & Plan: abnormal overnight ox last Hosp stay still needs Sleep study. Code(s): G47.30 - SLEEP APNEA, UNSPECIFIED
[2021-07-22] MEDS: Flonase NASAL NS SCH (13:16)
[2021-07-22] MEDS: XANAX 1 MG PO SCH (22:03)
[2021-07-22] MEDS: Mirapex 0.5 MG Tablet PO SCH (22:03)
[2021-07-23] MEDS: DUONEB 0.5-3 MG/3 ml Neb IH SCH ×6 (03:22→23:53)
[2021-07-23] MEDS: Nystatin SUSPENSION 60 ML PO SCH ×4 (03:40→21:04)
[2021-07-23] MEDS: Ativan 1 MG PO PRN ×4 (03:40→21:02)
[2021-07-23] MEDS: solu-MEDROL IV SCH ×4 (05:45→23:05)
[2021-07-23] MEDS: Spiriva 18 Mcg/Cap Inhaler IH SCH (07:15)
[2021-07-23] MEDS: PATIENT OWN MEDICATION IH SCH ×2 (07:15→18:28)
[2021-07-23] MEDS: PULMICORT 0.5 MG/2 ML RESPULES IH SCH ×2 (07:15→18:28)
[2021-07-23] MEDS: Protonix 40MG Tablet PO SCH (07:59)
[2021-07-23] MEDS: TENORMIN 50 MG PO SCH (07:59)
[2021-07-23] MEDS: Sodium Chloride 0.9% 1000 ML 1,000 ML IV SCH ×3 (08:02→23:06)
[2021-07-23] MEDS: PLAVIX 75 MG Tablet PO SCH (09:26)
[2021-07-23] MEDS: ZYLOPRIM 100 MG PO SCH (09:26)
[2021-07-23] MEDS: ECOTRIN 81 MG PO SCH (09:26)
[2021-07-23] MEDS: Mucinex 600MG ER Tabs PO SCH ×3 (09:26→21:02)
[2021-07-23] MEDS: FEOSOL 325 MG PO SCH (09:26)
[2021-07-23] MEDS: Singulair 10 MG PO SCH (09:26)
[2021-07-23] MEDS: NEURONTIN 300 MG PO SCH ×3 (09:27→21:02)
[2021-07-23] MEDS: ENOXAPARIN SODIUM SQ SCH (09:27)
[2021-07-23] MEDS: Lasix 40 MG/4 ML IV SCH ×2 (09:27→16:39)
[2021-07-23] MEDS: Flonase NASAL NS SCH (09:27)
[2021-07-23] MEDS: Klor Con 10 MEQ PO SCH ×2 (09:27→21:02)
[2021-07-23] MEDS: NYSTOP POWDER 15 GM TP SCH ×2 (09:27→21:09)
[2021-07-23] MEDS: THEOPHYLLINE ER 24HR PO SCH ×3 (09:28→21:02)
[2021-07-23] MEDS: ZOLOFT 50 MG TABLET PO SCH (09:42)
[2021-07-23] MEDS: Mirapex 0.5 MG Tablet PO SCH (21:02)
[2021-07-23] MEDS: XANAX 1 MG PO SCH (21:59)
[2021-07-24] MEDS: DUONEB 0.5-3 MG/3 ml Neb IH SCH ×3 (03:42→12:08)
[2021-07-24] MEDS: Nystatin SUSPENSION 60 ML PO SCH ×2 (04:10→07:21)
[2021-07-24] MEDS: solu-MEDROL IV SCH (05:06)
[2021-07-24] MEDS: PULMICORT 0.5 MG/2 ML RESPULES IH SCH (06:58)
[2021-07-24] MEDS: Spiriva 18 Mcg/Cap Inhaler IH SCH (07:00)
[2021-07-24] MEDS: PATIENT OWN MEDICATION IH SCH (07:00)
[2021-07-24 07:01] VITALS: BP 137/63
[2021-07-24 07:03] VITALS: O2SAT 95
[2021-07-24] MEDS: Ativan 1 MG PO PRN (07:19)
[2021-07-24] MEDS: NEURONTIN 300 MG PO SCH (07:19)
[2021-07-24] MEDS: ZOLOFT 50 MG TABLET PO SCH (07:19)
[2021-07-24] MEDS: Mucinex 600MG ER Tabs PO SCH (07:19)
[2021-07-24] MEDS: FEOSOL 325 MG PO SCH (07:19)
[2021-07-24] MEDS: Singulair 10 MG PO SCH (07:20)
[2021-07-24] MEDS: ZYLOPRIM 100 MG PO SCH (07:20)
[2021-07-24] MEDS: TENORMIN 50 MG PO SCH (07:20)
[2021-07-24] MEDS: PLAVIX 75 MG Tablet PO SCH (07:20)
[2021-07-24] MEDS: Klor Con 10 MEQ PO SCH (07:20)
[2021-07-24] MEDS: Protonix 40MG Tablet PO SCH (07:20)
[2021-07-24] MEDS: ECOTRIN 81 MG PO SCH (07:20)
[2021-07-24] MEDS: THEOPHYLLINE ER 24HR PO SCH (07:20)
[2021-07-24] MEDS: Flonase NASAL NS SCH (07:21)
[2021-07-24] MEDS: Lasix 40 MG/4 ML IV SCH (09:01)
[2021-07-24] MEDS: ENOXAPARIN SODIUM SQ SCH (09:01)
[2021-07-24] MEDS: NYSTOP POWDER 15 GM TP SCH (09:01)
[2021-07-24 12:13] VITALS: PULSE 84
== END 2021-07-24 13:18 | disposition hospice, home (50) | DRG 190 ==
LOC: MED SURG 04:15 → INTOOBSV 07-18 04:00 → OBSVTOIN 07-18 04:00
PROVIDERS: ADMIT Family Medicine; ATTEND Family Medicine
PROC: 02HV33Z Insertion of Infusion Device into Superior Vena Cava, Percutaneous Approach (ICD-10-PCS; principal; 2021-07-17)
DX: J44.1 Chronic obstructive pulmonary disease with (acute) exacerbation (principal); J18.9 Pneumonia, unspecified organism; J20.9 Acute bronchitis, unspecified; R09.02 Hypoxemia; R06.89 Other abnormalities of breathing; R10.11 Right upper quadrant pain; R60.9 Edema, unspecified; G47.30 Sleep apnea, unspecified; E66.9 Obesity, unspecified; F17.200 Nicotine dependence, unspecified, uncomplicated; Z85.118 Personal history of other malignant neoplasm of bronchus and lung; Z79.899 Other long term (current) drug therapy; Z20.828 Contact with and (suspected) exposure to other viral communicable diseases
CPT/HCPCS: 0241U; 36415; 36573; 36600; 71045; 71260; 76705; 76937; 77001; 80048; 80053; 80198; 82375; 82803; 83735; 83880; 84484; 85025; 85027; 85379; 85610; 85730; 93306; 94640; 94667; 94668; 94760; 94762; C1769; G0378; J0456; J0696; J1642; J1644; J1650; J1940; J2060; J2930; J7609; A9270-GY